=== PATIENT | female | born 1980 | race Caucasian/White ===

== ENCOUNTER 2019-10-30 02:07 | Emergency (ER) | payer SELFPAY ==
[2019-10-30 02:49] VITALS: BP 163/107; PULSE 78; RESP 16; TEMP 36.6; O2SAT 96; BMI 37.8
--- NOTE | 2019-10-30 04:24 | CTR_ITS ---
PROCEDURE INFORMATION: Exam: CT Head Without Contrast Exam date and time: 10/30/2019 4:55 AM Age: 39 years old Clinical indication: Dizziness and other: HTN TECHNIQUE: Imaging protocol: Computed tomography of the head without contrast. Radiation optimization: All CT scans at this facility use at least one of these dose optimization techniques: automated exposure control; mA and/or kV adjustment per patient size (includes targeted exams where dose is matched to clinical indication); or iterative reconstruction. COMPARISON: No relevant prior studies available. RADIATION DOSE METRICS: Total DLP (mGy-cm): 857.67 FINDINGS: Brain: The brain is unremarkable. There is no mass effect or significant white matter disease. There is no acute intracranial hemorrhage. Ventricles: There is no significant ventricular dilation. The basal cisterns are unremarkable. Bones/joints: The calvarium is intact. Sinuses: The paranasal sinuses are clear. Mastoid air cells: The mastoid air cells are clear. Soft tissues: The visible extracranial soft tissues are unremarkable. CT/CT head wo con* [id number] IMPRESSION: No acute findings. Radiation Dose CTDIVOL = (mGy): DLP = 857.67 (mGy-cm)
--- NOTE | 2019-10-30 04:37 | ED_ITS ---
Documented by User: Kellie Brar 10/30/19 05:58 HPI - General Adult General: Chief complaint: General Medical Stated complaint: high bp Time Seen by Provider: 10/30/19 04:04 Source: patient Mode of arrival: ambulatory Limitations: no limitations History of Present Illness: HPI narrative: Marley is a 39-year-old female who comes in complaining of dizziness and high blood pressure. Patient states that she was having sex with her when they had finished and she got up to go to the bathroom and had room spinning dizziness. She was able to get to the bathroom and the dizziness resolved. She had gone to the bathroom and got up off the toilet and had another episode of room spinning dizziness. She had to lay back down until the symptoms resolved and she decided to come here to the hospital to be checked out for stroke. She not had any symptoms since the second episode of dizziness. She denies any difficulty with speech, confusion, headache, or unilateral weakness or numbness. Patient denies ever having symptoms like this before. She states when the symptoms were present any type of movement of her body or head made them much worse. Associated symptoms: Deny chest pain, confusion, diaphoresis, dyspnea, headache(s), malaise, nausea, rash, palpitations, syncope or vomiting Review of Systems Const: Denies: fever(s), chills, body aches, fatigue, malaise or diaphoresis Eyes: Denies: change in vision, blurry vision, photophobia, eye discomfort, eye discharge or eye redness ENMT: Denies: throat pain, odynophagia, hoarseness, swelling of lips/tongue, ear or mastoid pain, ear discharge, change in hearing or nasal discharge Card: Denies: chest pain, palpitations, irregular heart rhythm, edema, lightheadedness, syncope, pre-syncope, dyspnea on exertion or orthopnea Resp: Denies: dyspnea, productive cough, non-productive cough, wheezing, hemoptysis or chest congestion GI: Denies: abdominal pain, nausea, vomiting, hematemesis, coffee ground emesis, heartburn, diarrhea, constipation, GI cramping, hematochezia or melena : Denies: flank pain, dysuria, urinary frequency, urinary urgency or hematuria Musc: Denies: neck pain, back pain, extremity pain, extremity swelling, joint pain, joint swelling, joint redness, joint warmth or joint stiffness Skin/Breast: Denies: rash, pruritus, erythema or skin tenderness Neuro: Reports: dizziness and vertigo; Denies: headache(s), numbness in extremities, weakness in extremities, sensory changes, lack of coordination, difficulty walking, confusion, Slurred speech present or seizure-like activity Umesh/Lymph: Denies: easy bruising, easy bleeding, petechiae, purpura or enlarged lymph nodes All/Imm: Denies: urticaria, throat swelling, tongue swelling, facial swelling or acute wheezing PFSH ED PFSH: Medical History Diabetes Heart murmur Female Reproductive History: Date of last menstrual period: 10/21/19 Physical Exam Const: COMMON NORMALS: no acute distress, patient oriented x3, no limitations, healthy appearing and well nourished GENERAL APPEARANCE: cooperative, well kempt and well developed HENMT: COMMON NORMALS: normocephalic, atraumatic, external ears normal, EAC's normal and Normal external nose present HEAD & SCALP: normal to inspection, normocephalic and atraumatic FACE & SINUS: normal facial exam and face symmetric NOSE: Normal external nose present and Normal nares present EXTERNAL EAR: Yes external ears normal EXTERNAL AUDITORY CANAL: EAC's normal MOUTH: Normal oral and palatal mucosa present, lip normal and tongue normal Eye: COMMON NORMALS: Equal, round and reactive pupils present and conjunctivae normal GENERAL EYE: appearance normal, both eyes and all related structures ALIGNMENT: Yes alignment normal PERIORBITAL: periorbital findings normal EYELID: eyelids normal CONJUNCTIVA: Yes conjunctivae normal SCLERA: sclerae normal PUPIL: Yes Equal, round and reactive pupils present Neck/C-Spine: COMMON NORMALS: full ROM, no lymphadenopathy, supple, no meningeal signs and no JVD GENERAL: Yes normal visual inspection and Yes trachea midline Chest: COMMONS NORMALS: normal inspection of the chest and normal palpation of entire chest wall Resp: COMMON NORMALS: normal respiratory effort, No retractions, No use of accessory muscles and clear to auscultation bilaterally EFFORT & INSPECTION: Yes able to speak in complete sentences and Yes symmetric chest movement AUSCULTATION: clear to auscultation bilaterally, no crackles, no rales, no rhonchi and no wheezes Cardio: COMMON NORMALS: no JVD, regular rate, regular rhythm, S1 normal heart sound present and S2 normal heart sound present RATE: regular rate RHYTHM: regular rhythm HEART SOUNDS: S1 normal heart sound present, S2 normal heart sound present, no click, no gallops, no murmurs, no rubs and abnormal split S2 GI: COMMON NORMALS: Soft to palpation and No hepatosplenomegaly present PALPATION: Yes Soft to palpation, No Tenderness to palpation present (GI), No Guarding due to palpation present (GI), No Rigid due to palpation, Yes No h epatosplenomegaly present, No Hernia present, No Palpable mass present and No Pulsatile mass present : COMMON NORMALS: Yes no CVA tenderness BLADDER/KIDNEY EXAM: Yes no CVA tenderness EXTERNAL FEMALE EXAM: No Hernia present Back/Pelvis: COMMON NORMALS: no CVA tenderness, thoracic and lumbar spine normal to inspection, no thoracic nor lumbar tenderness and thoraco-lumbar ROM normal Extremity: COMMON NORMALS: normal to inspection, full ROM, capillary refill normal, no joint enlargement, no clubbing, cyanosis or edema and no calf tenderness Neuro: COMMON NORMALS: patient oriented x3, CN's II-XII intact bilaterally, moves all extremities, no focal motor deficits and no sensory deficits noted MENINGEAL SIGNS: Yes no meningeal signs SPEECH: speech normal Psych: COMMON NORMALS: mental status grossly normal, Normal thought process present, cooperative, normal affect, speech normal and activity/motor behavior normal APPEARANCE: Yes well kempt SPEECH: Yes normal speech THOUGHT PROCESS: Normal thought process present Skin: COMMON NORMALS: no rashes or lesions noted, turgor normal, no jaundice, no petechiae and no mottling GENERAL SKIN EXAM: no rashes or lesions noted and turgor normal Course Vital Signs: Vital signs: Vital Signs Temperature 98.2 F 10/30/19 06:11 Pulse Rate 76 10/30/19 06:11 Respiratory Rate 20 H 10/30/19 06:11 Blood Pressure 155/99 10/30/19 06:11 Pulse Oximetry 95 10/30/19 06:11 MDM - General Adult MDM Narrative: Medical decision making narrative: Marley is a nice 39-year-old female who comes in with vertiginous type symptoms after intercourse. She never had a headache or chest pain or palpitations. She was not near syncopal she only had room spinning dizziness. Her 2 episodes resolved prior to arrival here. She was concerned about stroke so a CT was performed which is unremarkable. Her labs are unremarkable. Patient is feeling better would like to go home. I will go ahead and prescribe her Antivert in case her symptoms return at home that she can try this. Otherwise she is informed return to the ER. Lab Data: Labs: Lab Results 10/30/19 10/30/19 10/30/19 Range/Units 05:00 05:00 05:00 WBC 5.2 (4.0-10.0) 10^3/ uL RBC 4.29 (4.1-5.3) 10^6/u L Hgb 12.2 (11.5-15.3) g/dL Hct 37.8 (37.0-47.0) % MCV 88.1 (81-99) fL MCH 28.4 (28.0-34.0) pg MCHC 32.3 (30.0-36.0) g/dL RDW 12.0 L (12.1-15.1) % Plt Count 313 (130-400) 10^3/c mm MPV 10.6 H (7.4-10.4) fL Neut % (Auto) 53.5 % Lymph % (Auto) 35.5 % [place] % (Auto) 8.1 % Eos % (Auto) 2.1 % Baso % (Auto) 0.8 % Neut # (Auto) 2.77 (1.8-7.7) 10^3/u L Lymph # (Auto) 1.8 (0.8-4.8) 10^3/u L [place] # (Auto) 0.4 (0.2-0.9) 10^3/u L Eos # (Auto) 0.1 (0.0-0.8) 10^3/u L Baso # (Auto) 0.0 (0.0-0.1) 10^3/u L Nucleated RBC % (a uto) 0 % Nucleated RBCs # 0.0 /100WBC Sodium 137 (136-145) mmol/L Potassium 3.7 (3.5-5.1) mmol/L Chloride 100 (98-107) mmol/L Carbon Dioxide 26 (22-29) mmol/L Anion Gap 14.7 (5-19) BUN 11 (6-20) mg/dL Creatinine 1.0 H (0.5-0.9) mg/dL GFR Calculation 61.7 L (90-130) mL/min Glucose 120 H (65-115) mg/dL Calculated Osmolal ity 281 L (285-295) mOsm/k g Calcium 9.9 (8.5-10.5) mg/dL Total Bilirubin 0.3 (0.15-1.2) mg/dL AST 25 (0-32) U/L ALT 26 (0-33) U/L Alkaline Phosphata se 89 (35-105) IU/L Total Protein 7.8 (6.6-8.7) g/dL Albumin 4.3 (3.5-5.2) g/dL Globulin 3.5 (1.3-4.6) g/dL HCG, Qual Negative (Negative) Imaging Data^: CT Head: Radiologist's impression: [place] [address] CT Scan Report Signed Patient: Marley Zamarripa Unit #: [id number] : 1980 Age/Sex: 39 / F ADM Date: 10/30/19 Loc: ER Room/Bed: Attending Dr: Ordering Provider/Ordering MD: Kellie Brar DO Date of Service: 10/30/19 Procedure(s): CT head wo con* [id number] Accession Number(s): [id number] Report Number: [id number] PROCEDURE INFORMATION: Exam: CT Head Without Contrast Exam date and time: 10/30/2019 4:55 AM Age: 39 years old Clinical indication: Dizziness and other: HTN TECHNIQUE: Imaging protocol: Computed tomography of the head without contrast. Radiation optimization: All CT scans at this facility use at least one of these dose optimization techniques: automated exposure control; mA and/or kV adjustment per patient size (includes targeted exams where dose is matched to clinical indication); or iterative reconstruction. COMPARISON: No relevant prior studies available. RADIATION DOSE METRICS: Total DLP (mGy-cm): 857.67 FINDINGS: Brain: The brain is unremarkable. There is no mass effect or significant white matter disease. There is no acute intracranial hemorrhage. Ventricles: There is no significant ventricular dilation. The basal cisterns are unremarkable. Bones/joints: The calvarium is intact. Sinuses: The paranasal sinuses are clear. Mastoid air cells: The mastoid air cells are clear. Soft tissues: The visible extracranial soft tissues are unremarkable. CT/CT head wo con* [id number] IMPRESSION: No acute findings. Radiation Dose CTDIVOL = (mGy): DLP = 857.67 (mGy-cm) Dictated By: Nabil Greenwood MD Signed By: Nabil Greenwood MD Signed Date/Time: 10/30/19525 DD/ 4 Discharge Plan Discharge Patient Disposition: Home Clinical Impression: Benign paroxysmal positional vertigo Qualifiers: Laterality: unspecified laterality Qualified Code(s): H81.10 - Benign paroxysmal vertigo, unspecified ear Condition: Stable Prescriptions: New meclizine 25 mg tablet 25 mg PO QID PRN (Reason: dizziness) Qty: 30 RF: 0 Discharge Orders: Discharge Order (Routine); Ordered 10/30/19 Ordered By: Kellie Brar Referrals: Alberto Strickland MD [Physician] - 4-7 days Discharge Diet: Advance as tolerated Discharge Activity: Resume usual activity Patient Instructions: Benign Paroxysmal Positional Vertigo (ED) Activity Restrictions/Additional Instructions: Please return to the ER immediately for any of the signs or symptoms listed on your discharge instruction sheets, worsening/changing of your symptoms, you are not getting better as quickly as expected, or for ANY other cause or concerns. If your dizziness returns take the vertigo as I have prescribed. If your symptoms do not resolve return to the ER for further evaluation and care. Discharge Date/Time: 10/30/19 06:13 Coding Level of Care Code ED Wet Suit Gluer for Chg Fwd Exam Comprehensive Documented by User: Arthur Jameson DO 11/01/19 15:04 HPI - General Adult General: Chief complaint: General Medical Stated complaint: high bp Time Seen by Provider: 10/30/19 04:04 [facility] ED PFSH: Medical History Diabetes Heart murmur Course Vital Signs: Vital signs: Vital Signs Temperature 98.2 F 10/30/19 06:11 Pulse Rate 76 10/30/19 06:11 Respiratory Rate 20 H 10/30/19 06:11 Blood Pressure 155/99 10/30/19 06:11 Pulse Oximetry 95 10/30/19 06:11 MDM - General Adult MDM Narrative: Medical decision making narrative: Care turned over to Dr. Anaya at change of shift see his notes for final diagnosis and disposition Lab Data: Labs: Lab Results 10/30/19 10/30/19 10/30/19 Range/Units 05:00 05:00 05:00 WBC 5.2 (4.0-10.0) 10^3/ uL RBC 4.29 (4.1-5.3) 10^6/u L Hgb 12.2 (11.5-15.3) g/dL Hct 37.8 (37.0-47.0) % MCV 88.1 (81-99) fL MCH 28.4 (28.0-34.0) pg MCHC 32.3 (30.0-36.0) g/dL RDW 12.0 L (12.1-15.1) % Plt Count 313 (130-400) 10^3/c mm MPV 10.6 H (7.4-10.4) fL Neut % (Auto) 53.5 % Lymph % (Auto) 35.5 % [place] % (Auto) 8.1 % Eos % (Auto) 2.1 % Baso % (Auto) 0.8 % Neut # (Auto) 2.77 (1.8-7.7) 10^3/u L Lymph # (Auto) 1.8 (0.8-4.8) 10^3/u L [place] # (Auto) 0.4 (0.2-0.9) 10^3/u L Eos # (Auto) 0.1 (0.0-0.8) 10^3/u L Baso # (Auto) 0.0 (0.0-0.1) 10^3/u L Nucleated RBC % (a uto) 0 % Nucleated RBCs # 0.0 /100WBC Sodium 137 (136-145) mmol/L Potassium 3.7 (3.5-5.1) mmol/L Chloride 100 (98-107) mmol/L Carbon Dioxide 26 (22-29) mmol/L Anion Gap 14.7 (5-19) BUN 11 (6-20) mg/dL Creatinine 1.0 H (0.5-0.9) mg/dL GFR Calculation 61.7 L (90-130) mL/min Glucose 120 H (65-115) mg/dL Calculated Osmolal ity 281 L (285-295) mOsm/k g Calcium 9.9 (8.5-10.5) mg/dL Total Bilirubin 0.3 (0.15-1.2) mg/dL AST 25 (0-32) U/L ALT 26 (0-33) U/L Alkaline Phosphata se 89 (35-105) IU/L Total Protein 7.8 (6.6-8.7) g/dL Albumin 4.3 (3.5-5.2) g/dL Globulin 3.5 (1.3-4.6) g/dL HCG, Qual Negative (Negative) Discharge Plan Discharge Patient Disposition: Home Clinical Impression: Benign paroxysmal positional vertigo Qualifiers: Laterality: unspecified laterality Qualified Code(s): H81.10 - Benign p aroxysmal vertigo, unspecified ear Condition: Stable Prescriptions: New meclizine 25 mg tablet 25 mg PO QID PRN (Reason: dizziness) Qty: 30 RF: 0 Discharge Orders: Discharge Order (Routine); Ordered 10/30/19 Ordered By: Kellie Brar Referrals: Alberto Strickland MD [Physician] - 4-7 days Discharge Diet: Advance as tolerated Discharge Activity: Resume usual activity Patient Instructions: Benign Paroxysmal Positional Vertigo (ED) Activity Restrictions/Additional Instructions: Please return to the ER immediately for any of the signs or symptoms listed on your discharge instruction sheets, worsening/changing of your symptoms, you are not getting better as quickly as expected, or for ANY other cause or concerns. If your dizziness returns take the vertigo as I have prescribed. If your symptoms do not resolve return to the ER for further evaluation and care. Discharge Date/Time: 10/30/19 06:13 Coding Level of Care Code ED Wet Suit Gluer for Chg Fwd Exam Comprehensive
[2019-10-30 05:32] LABS: Basophils % 0.8 %; Eosinophils # 0.1 10^3/uL (0.0-0.8); Eosinophils % 2.1 %; Hematocrit 37.8 % (37.0-47.0); Hemoglobin 12.2 g/dL (11.5-15.3); Lymphocytes # 1.8 10^3/uL (0.8-4.8); Lymphocytes % 35.5 %; Mean Corpuscular HGB Conc 32.3 g/dL (30.0-36.0); Mean Corpuscular Hemoglobin 28.4 pg (28.0-34.0); Mean Corpuscular Volume 88.1 fL (81-99); Mean Platelet Volume 10.6 fL (7.4-10.4); Monocytes # 0.4 10^3/uL (0.2-0.9); Monocytes % 8.1 %; Neutrophils # 2.77 10^3/uL (1.8-7.7); Neutrophils % 53.5 %; Nucleated Red Blood Cells % 0 %; Platelet Count 313 10^3/cmm (130-400); Red Blood Count 4.29 10^6/uL (4.1-5.3); White Blood Count 5.2 10^3/uL (4.0-10.0)
[2019-10-30 05:43] LABS: HCG, Serum Qual Negative (Negative)
[2019-10-30 05:52] LABS: Alanine Aminotransferase 26 U/L (0-33); Albumin Level 4.3 g/dL (3.5-5.2); Alkaline Phosphatase 89 IU/L (35-105); Anion Gap 14.7 (5-19); Aspartate Amino Transferase 25 U/L (0-32); Blood Urea Nitrogen 11 mg/dL (6-20); Calcium 9.9 mg/dL (8.5-10.5); Carbon Dioxide 26 mmol/L (22-29); Chloride 100 mmol/L (98-107); Globulin 3.5 g/dL (1.3-4.6); Glomerular Filtration Rate 61.7 mL/min (90-130); Glucose 120 mg/dL (65-115); Osmolality Calculated 281 mOsm/kg (285-295); Potassium 3.7 mmol/L (3.5-5.1); Sodium 137 mmol/L (136-145); Total Bilirubin 0.3 mg/dL (0.15-1.2); Total Protein 7.8 g/dL (6.6-8.7)
[2019-10-30 06:11] VITALS: BP 155/99; PULSE 76; RESP 20; TEMP 36.8; O2SAT 95
== END 2019-10-30 06:13 | disposition home or self-care (01) ==
PROVIDERS: Emergency Provider Emergency Medicine
DX: H81.10 Benign paroxysmal vertigo, unspecified ear (principal); E11.9 Type 2 diabetes mellitus without complications
CPT/HCPCS: 12345; 70450; 80053; 84703; 85025; 99282; 99283

== ENCOUNTER → 2021-10-09 16:42 | Outpatient (BNVA) | payer MEDICAID, SELFPAY | PROVIDERS: Visit Provider Registered Nurse Neonatal Intensive Care | DX: N39.0 Urinary tract infection, site not specified (principal) | CPT/HCPCS: 81000 ==

== ENCOUNTER → 2022-12-24 15:52 | Outpatient (BNVA) | payer OTHER, SELFPAY | PROVIDERS: Visit Provider Obstetrics & Gynecology | DX: N93.9 Abnormal uterine and vaginal bleeding, unspecified (principal) | CPT/HCPCS: 80053; 84443; 85025 ==

== ENCOUNTER → 2022-12-31 12:19 | Outpatient (BNVA) | payer OTHER, SELFPAY | PROVIDERS: Visit Provider Obstetrics & Gynecology | DX: N93.9 Abnormal uterine and vaginal bleeding, unspecified (principal); N83.201 Unspecified ovarian cyst, right side | CPT/HCPCS: 76830 ==

== ENCOUNTER 2023-02-20 05:50 | Day surgery (SDC) | payer OTHER, SELFPAY ==
[2023-02-20] VITALS (10 sets, daily range): BP systolic 112–168; BP diastolic 71–110; PULSE 66–81; RESP 12–18; TEMP 36.1; O2SAT 91–97; BMI 46.0
--- NOTE | 2023-02-20 02:06 | P.HP_ITS ---
Same Day Surgery H&P Indication for Procedure/HPI DATE OF PROCEDURE: February 20, 2023 CHIEF COMPLAINT/INDICATIONFOR SURGICAL PROCEDURE: abnormal uterine bleeding PREOP DIAGNOSIS: abnormal uterine bleeding PLANNED PROCEDURE: Operation Date: 02/20/23 07:00 Proposed Procedures p Hysteroscopy, endometrial sampling, possible endometrial polypectomy 63809 ,n93.9(Not Applicable) - Diego Oleary MD s possible endometrial polypectomy(Not Applicable) - Diego Oleary MD 42 y.o. h/o BTL Periods prior to four months ago were normal and regular Over the past 4 months, periods have been prolonged and very heavy With passing large clots Now scheduled for hysteroscopy, endometrial sampling, possible endometrial polypectomy Medications/Allergies* Home Medications Medication Instructions Recorded Confirmed Type cetirizine 10 mg tablet 10 mg PO BEDTIME 02/19/23 02/19/23 History ferrous sulfate 142 mg (45 mg 142 mg PO BEDTIME 02/19/23 02/19/23 History iron) tablet,extended release Allergies/Adverse Reactions Allergy/AdvReac Type Severity Reaction Status Date / Time aspirin Allergy ALGY-Hives Verified 02/19/23 13:11 Pertinent History/Comorbid Conditions* Medical History (Updated 01/04/23 @ 22:46 by Diego Oleary MD) Diabetes Heart murmur Family History (Updated 12/24/22 @ 14:05 by Stan Salvador) Diabetes Father Mother Hypertension Father Mother Thyroid disease Father Denies family history of Colon cancer Ovarian cancer Heart disease Hyperlipidemia Breast cancer Uterine cancer Stroke Pertinent Exam Findings alert, oriented x 3, clear to auscultation bilaterally and regular rate & rhythm Pertinent Data Hgb 12-24-22 12.2 CMP normal TSH normal Pelvic sono 12-31-22 uterus 11.5 x 6.5 x 6 cm Endometrium 1.6 cm Normal right ovary Left ovary not seen Recommendations Surgery/Procedure today Coding Level of Care Code Acute Code for Chg Fwd Time Spent (min) 20
[2023-02-20] MEDS: sodium chloride 0.9% 1,000 ML 30 ML IV (06:13)
[2023-02-20 06:22] LABS: OR HCG Qualitative Urine Negative (Negative)
--- NOTE | 2023-02-20 06:44 | W.PM.OPSUD ---
Surgery/Procedure H&P Update DATE OF PROCEDURE: February 20, 2023 DATE H&P PERFORMED: 02/20/23 H&P UPDATE INFORMATION: I have reviewed H&P completed within last 30 days, I have examined patient prior to procedure and No changes to prior documentation PREOP DIAGNOSIS: abnormal uterine bleeding PRIMARY INDICATION FOR PROCEDURE: abnormal uterine bleeding PLANNED PROCEDURE: Operation Date: 02/20/23 07:00 Proposed Procedures p Hysteroscopy, endometrial sampling, possible endometrial polypectomy 54004,n93.9(Not Applicable) - Diego Oleary MD s possible endometrial polypectomy(Not Applicable) - Diego Oleary MD
--- NOTE | 2023-02-20 08:25 | ANES.PREANE2 ---
Pre-Anesthetic Assessment Height/Weight: Height 1.68 m Weight 129.274 kg Temp Pulse Resp BP Pulse Ox O2 Del Method O2 Flow Rate 97 F L 74 16 136/86 97 Nasal Cannula 2 02/20/23 07:54 02/20/23 08:19 02/20/23 08:19 02/20/23 08:19 02/20/23 08:19 02/20/23 08:19 02/20/23 08:19 Preop Diagnosis: abnormal uterine bleeding Operation Date: 02/20/23 07:00 Proposed Procedures p Hysteroscopy, endometrial sampling, possible endometrial polypectomy 76325,n93.9(Not Applicable) - Diego Oleary MD s possible endometrial polypectomy(Not Applicable) - Diego Oleary MD Familial anesthetic complications: none Was Beta Cori taken within 24 hours: N/A Was Clonidine taken within 24 hours: N/A Last intake: Intake Last Liquid Date 02/19/23 Last Liquid Time 23:00 Last Solid Date 02/19/23 Last Solid Time 21:30 Social No alcohol and No tobacco Exam alert, oriented x 3, clear to auscultation bilaterally and regular rate & rhythm Airway Submandibular: within normal limits Cervical ROM: within normal limits Mallampati: Class II Dentition: chipped Comments: Comments: Very poor dentition, multiple chipped and missing CV/HEM Anemia Metabolic Diabetes Mellitus and Morbid Obesity Anesthetic Plan ASA status: 3 Anesthesia: General Medications/Allergies Home Medications Medication Instructions Recorded Confirmed Last Taken Type fluticasone propionate 50 2 spray intranasal DAILY #16 grams 01/08/23 02/19/23 02/19/23 Rx mcg/actuation nasal spray,suspension (Flonase Allergy Relief) cetirizine 10 mg tablet 10 mg PO BEDTIME 02/19/23 02/19/23 02/19/23 History ferrous sulfate 142 mg (45 mg 142 mg PO BEDTIME 02/19/23 02/19/23 02/19/23 History iron) tablet,extended release Allergies Allergy/AdvReac Type Severity Reaction Status Date / Time aspirin Allergy ALGY-Hives Verified 02/19/23 13:11 Current Medications Generic Name Dose Route Start Last Admin Trade Name Freq PRN Reason Stop Dose Admin Sodium Chloride 1,000 mls @ 30 mls/hr 02/20/23 06:00 02/20/23 06:13 Sodium Chloride 0.9% IV 02/21/23 05:59 30 mls/hr .Q24H HORACIO Administration PFSH Anesthesia Medical History Diabetes Heart murmur Family History (Updated 12/24/22 @ 14:05 by Stan Salvador) Father Hypertension Thyroid disease Diabetes Mother Hypertension Diabetes Denies family history of Colon cancer Ovarian cancer Heart disease Hyperlipidemia Breast cancer Uterine cancer Stroke Female Reproductive History Date of last menstrual period: 02/17/23 Data Anesthesia Cardiac Studies: No Data to Display
--- NOTE | 2023-02-20 14:14 | PM.OP ---
Operative Report Date of procedure: February 20, 2023 Pre-op diagnosis: abnormal uterine bleeding Post-op diagnosis: same Post-op findings: normal endometrial cavity No polyps / fibroids moderate endometrial tissue Procedure done: hysteroscopy Curettage of uterus Implants: none Specimens removed/disposition: endometrial curettings Surgeon: Diego Oleary MD Anesthesia: MAC Estimated blood loss (mL): 5 Complications: none Condition: stable Disposition: PACU Brief History: 44 y.o. with 4-month history of abnormal uterine bleeding Procedure: Informed consent signed. Patient was taken to the operating room. Anesthesia was induced. Patient was placed in dorsolithotomy position, prepped and draped for hysteroscopy. A bivalve speculum was placed in the vagina. The anterior lip of the cervix was grasped with a sharp-toothed tenaculum. The cervix was serially dilated with Hegar dilators. . A hysteroscope was placed into the endometrial cavity. The endometrial cavity was seen to be normal. There were no polyps or fibroids. There was a moderate amount of endometrial tissue. The hysteroscope was then removed. Endometrial curettage was done with a sharp curette. Endometrial tissue was sent to pathology. The sharp-toothed tenaculum was removed. There was no bleeding from the endometrial cavity or cervix. The patient was then placed supine and awakened and taken to the PACU. Postop condition: stable EBL: none Sponge and instruments counts were normal x 2 Complications: none
--- NOTE | 2023-02-20 15:54 | ANE.PACU2 ---
Inpatient post-anesthesia follow up: Airway intact: Yes Vital signs: Temperature 97 F Pulse Rate 72 Respiratory Rate 18 Blood Pressure 168/95 Pulse Oximetry 95 Oxygen Delivery Me thod Room Air Oxygen Flow Rate 2 Fraction of Inspir ed Oxygen Hydration adequate: Yes Nausea and vomiting: No Pain level: 2 Mental status: Baseline
== END 2023-02-20 09:13 | disposition home or self-care (01) ==
PROVIDERS: Anesthesiology; Visit Provider Obstetrics & Gynecology
PROC: 0UJD8ZZ Inspection of Uterus and Cervix, Via Natural or Artificial Opening Endoscopic (ICD-10-PCS; CPT 58555; principal; 2023-02-20 07:00)
DX: N93.9 Abnormal uterine and vaginal bleeding, unspecified (principal); E11.9 Type 2 diabetes mellitus without complications; E66.01 Morbid (severe) obesity due to excess calories; Z68.42 Body mass index [BMI] 45.0-49.9, adult
CPT/HCPCS: 58558; 81025; 84703; 88305; J1100; J2250; J2405; J2704; J3010; J7030

== ENCOUNTER 2023-11-22 14:18 | Emergency (ER) | payer SELFPAY ==
[2023-11-22 14:22] VITALS: BP 172/112; PULSE 82; RESP 17; TEMP 36.6; O2SAT 96; BMI 45.5
--- NOTE | 2023-11-22 14:32 | XRR_ITS ---
PROCEDURE INFORMATION: Exam: XR Left Knee Exam date and time: 11/22/2023 2:39 PM Age: 43 years old Clinical indication: Left; Patient HX: Lt knee pain/swelling x 1 wk; No known injury TECHNIQUE: Imaging protocol: Radiologic exam of the left knee. Views: 3 views. COMPARISON: CR XR knee LT 3V* [id number] 01/19/2020 9:04 AM FINDINGS: Bones/joints: Mild-moderate medial femorotibial osteoarthritis. No evidence of acute fracture or subluxation. Small joint effusion. Soft tissues: No gross soft tissue abnormality. XR/XR knee LT 3V* [id number] IMPRESSION: 1. No evidence of acute fracture or subluxation.
--- NOTE | 2023-11-22 14:32 | W.ED.EXTPRO ---
HPI - Extremity Problem General: Chief complaint: Extremity Problem,Nontraumatic Stated complaint: Left knee swelling and pain Time Seen by Provider: 11/22/23 14:22 Source: patient Mode of arrival: ambulatory Limitations: no limitations History of Present Illness: Patient is a 43-year-old female presenting to the emergency department with left knee pain and swelling that she states have been present for the past week. States it has been starting to buckle under her, no trauma or injury to her knowledge. She has been taking Tylenol but denies any relief. Also has been using ice and heat. No surgical history to the knee or history of fractures or dislocations. States it is worsened with weightbearing and range of motion. MD Complaint: joint swelling and joint pain Onset (ago): week(s) Pain Consistency: constant Location: left and knee Radiation: none Exacerbating factors: range of motion and weight bearing Associated symptoms: Deny chest pain, fever(s) or rash Related Data Home Medications Medication Instructions Recorded Confirmed ferrous sulfate 142 mg (45 mg 142 mg PO BEDTIME 02/19/23 09/15/23 iron) tablet,extended release Previous Rx's Medication Instructions Recorded fluticasone propionate 50 2 spray intranasal DAILY #16 grams 01/08/23 mcg/actuation nasal spray,suspension (Flonase Allergy Relief) cetirizine 10 mg tablet 10 mg PO BEDTIME #30 tabs 06/25/23 Allergies Allergy/AdvReac Type Severity Reaction Status Date / Time aspirin Allergy ALGY-Hives Verified 11/22/23 14:25 Review of Systems General: Reports: 10 or more systems reviewed and unremarkable except in HPI and below Const: Denies: fever(s) or chills Card: Denies: chest pain Resp: Denies: dyspnea or productive cough GI: Denies: abdominal pain, nausea, vomiting or diarrhea : Denies: flank pain Musc: Reports: joint pain and joint swelling; Denies: neck pain, back pain, extremity pain, extremity swelling, joint redness, joint warmth, limited range of motion or muscle weakness Skin/Breast: Denies: rash Neuro: Denies: headache(s), numbness in extremities or weakness in extremities PFS ED PFSH: Medical History Diabetes Heart murmur Family History Father Hypertension Thyroid disease Diabetes Mother Hypertension Diabetes Denies family history of Colon cancer Ovarian cancer Heart disease Hyperlipidemia Breast cancer Uterine cancer Stroke Physical Exam Const: COMMON NORMALS: no acute distress, patient oriented x3, no limitations, alert and well nourished NUTRITIONAL APPEARANCE: obese morbidly obese HENMT: COMMON NORMALS: normocephalic and atraumatic HEAD & SCALP: normocephalic and atraumatic Neck/C-Spine: COMMON NORMALS: full ROM, supple and no meningeal signs Resp: COMMON NORMALS: normal respiratory effort, No use of accessory muscles and clear to auscultation bilaterally AUSCULTATION: clear to auscultation bilaterally Cardio: COMMON NORMALS: regular rate and regular rhythm RATE: regular rate RHYTHM: regular rhythm Extremity: COMMON NORMALS: normal to inspection, full ROM, capillary refill normal, no joint enlargement and no clubbing, cyanosis or edema NARRATIVE EXTREMITY EXAM: No obvious swelling of the left knee. Mild diffuse tenderness to palpation. No appreciable joint effusion. No joint laxity with varus/valgus stress testing. Negative Lolly, anterior drawer, and posterior drawer. Distal neurovascular status intact. Distal pulses present. Neuro: COMMON NORMALS: patient oriented x3, moves all extremities, no focal motor deficits and no sensory deficits noted SENSORIUM/ORIENTATION: Yes alert MENINGEAL SIGNS: Yes no meningeal signs Skin: COMMON NORMALS: no rashes or lesions noted GENERAL SKIN EXAM: no rashes or lesions noted Course Vital Signs: Vital signs: Vital Signs Temperature 98 F 11/22/23 14:22 Pulse Rate 82 11/22/23 14:22 Respiratory Rate 17 11/22/23 14:22 Blood Pressure 172/112 11/22/23 14:22 Pulse Oximetry 96 11/22/23 14:22 Oxygen Delivery Me thod Room Air 11/22/23 14:22 MDM - Extremity (Nontraumatic) Medical Decision Making Patient presented with 1 week of atraumatic left knee pain, has started to have some swelling as well. Physical examination essentially unremarkable. X-ray did not demonstrate any acute findings. Difficult to determine what type of injury without known mechanism, but we will treat as if it is a strain/sprain and referred to orthopedics so that she can obtain further imaging if pain persists. Will do RICE therapy in the meantime and she will add ibuprofen to her Tylenol for pain. Return precautions given. Lab Data Radiology Impressions Knee X-Ray 11/22/23 14:32 IMPRESSION: 1. No evidence of acute fracture or subluxation. All radiology interpretation(s) finalized by discharge Discharge Plan Discharge Patient Disposition: Home Clinical Impression: Left knee sprain Qualifiers: Encounter type: initial encounter Involved ligament of knee: unspecified ligament Qualified Code(s): S83.92XA - Sprain of unspecified site of left knee, initial encounter Condition: Stable Prescriptions: No Action cetirizine 10 mg tablet 10 mg PO BEDTIME Qty: 30 0RF fluticasone propionate [Flonase Allergy Relief] 50 mcg/actuation spray,suspension 2 spray intranasal DAILY Qty: 16 0RF Rx Instructions: administer into each nostril ferrous sulfate 142 mg (45 mg iron) tablet extended release 142 mg PO BEDTIME Discharge Orders: Discharge ED (Routine); Ordered 11/22/23 Ordered By: Spenser Pitt Discharge Diet: Usual diet Discharge Activity: Increase activity as tolerated Patient Instructions: Knee Sprain (ED) Activity Restrictions/Additional Instructions: Rest, ice, elevation, and compression of the left knee. Alternate Tylenol and ibuprofen as discussed. Gentle range of motion exercises as tolerated and weightbearing as tolerated. Follow-up with orthopedics for further evaluation. Return with any new or worsening. Coding Level of Care Code ED Transcribing Machine Operator for Beau Michelle
[2023-11-22] MEDS: ketorolac 60 mg/2 mL INJ IM (15:31)
[2023-11-22 15:35] VITALS: BP 187/110; PULSE 76; RESP 16; O2SAT 96
== END 2023-11-22 15:33 | disposition home or self-care (01) ==
PROVIDERS: Emergency Provider Physician Assistant
DX: S83.92XA Sprain of unspecified site of left knee, initial encounter (principal); E11.9 Type 2 diabetes mellitus without complications; X50.9XXA Other and unspecified overexertion or strenuous movements or postures, initial encounter
CPT/HCPCS: 73562; 96372; 99284; J1885

== ENCOUNTER 2024-03-25 17:59 | Emergency (ER) | payer SELFPAY ==
--- NOTE | 2024-03-25 18:01 | ECG_ITS ---
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 Measurements Intervals [place] Rate: 101 P: 37 MI: 150 QRS: -19 QRSD: 94 T: 66 QT: 355 QTc: 462 Interpretive Statements SINUS TACHYCARDIA LOW QRS VOLTAGE IN PRECORDIAL LEADS [QRS DEFLECTION < 1.0 mV IN CHEST LEADS] POSSIBLE ANTERIOR MYOCARDIAL INFARCTION , PROBABLY OLD [30 ms Q WAVE IN V3/V4, OR R < 0.2 mV IN V4] ABNORMAL RHYTHM ECG Compared to ECG 07/14/2017 22:09:07 Low QRS voltage now present Myocardial infarct finding now present Sinus rhythm no longer present Electronically Signed On 03-25-2024 18:18:53 CLINICAL EDUCATION CONSULTANT by Tena Torres M.D. [id number]
--- NOTE | 2024-03-25 18:02 | XRR_ITS ---
PROCEDURE INFORMATION: Exam: XR Chest Exam date and time: 03/25/2024 6:24 PM Age: 44 years old Clinical indication: Pain; Chest pressure; Additional info: Cp TECHNIQUE: Imaging protocol: Radiologic exam of the chest. Views: 1 view. COMPARISON: CR XR chest 1V [id number] 07/14/2017 9:32 PM FINDINGS: Lungs: Unremarkable. No consolidation. Pleural spaces: Unremarkable. No pleural effusion. No pneumothorax. Heart/Mediastinum: Unremarkable. No cardiomegaly. Bones/joints: Unremarkable. XR/XR chest 1V portable [id number] IMPRESSION: No acute findings.
[2024-03-25 18:05] VITALS: BP 184/114; PULSE 99; RESP 17; TEMP 36.9; O2SAT 96; BMI 46.0
[2024-03-25 18:21] VITALS: BP 165/109; PULSE 92; RESP 18; O2SAT 96
[2024-03-25 18:42] LABS: Basophils % 0.6 %; Eosinophils # 0.1 10^3/uL (0.0-0.8); Eosinophils % 1.7 %; Hematocrit 34.4 % (36-47); Lymphocytes # 0.8 10^3/uL (0.8-4.8); Lymphocytes % 23.2 %; Mean Corpuscular HGB Conc 32.6 g/dL (30-55); Mean Corpuscular Hemoglobin 28.1 pg (27-33); Mean Corpuscular Volume 86.2 fl (85-98); Mean Platelet Volume 9.8 fL (7.4-10.4); Monocytes # 0.4 10^3/uL (0.2-0.9); Monocytes % 10.6 %; Neutrophils # 2.28 10^3/uL (1.8-7.7); Neutrophils % 63.9 %; Nucleated Red Blood Cells % 0 %; Platelet Count 314 10^3/cmm (157-399); Red Blood Count 3.99 10^6/uL (3.85-5.65); Red Cell Distribution Width 12.3 % (12.1-15.1); White Blood Count 3.57 10^3/uL (3.29-11.43)
--- NOTE | 2024-03-25 18:49 | W.ED.URI ---
HPI - URI/Sore Throat General: Chief Complaint: Upper Respiratory Infection Stated Complaint: Chest Pressure temp hands numb Time Seen by Provider: 03/25/24 18:09 History of Present Illness: 44-year-old female presents emergency room with chest tightness some flu symptoms. She has been feeling bad for about 4 days. She has had a couple episodes where her chest felt tight. She has a history of hypertension and anxiety. Related Data Home Medications Medication Instructions Recorded Confirmed ferrous sulfate 142 mg (45 mg 142 mg PO BEDTIME 02/19/23 09/15/23 iron) tablet,extended release Previous Rx's Medication Instructions Recorded fluticasone propionate 50 2 spray intranasal DAILY #16 grams 01/08/23 mcg/actuation nasal spray,suspension (Flonase Allergy Relief) cetirizine 10 mg tablet 10 mg PO BEDTIME #30 tabs 06/25/23 Allergies Allergy/AdvReac Type Severity Reaction Status Date / Time aspirin Allergy ALGY-Hives Verified 11/22/23 14:25 Review of Systems Narrative: Constitutional symptoms: Negative except as documented in HPI. Skin symptoms: Negative except as documented in HPI. Eye symptoms: Negative except as documented in HPI. ENMT symptoms: Negative except as documented in HPI. Respiratory symptoms: Negative except as documented in HPI. Cardiovascular symptoms: Negative except as documented in HPI. Gastrointestinal symptoms: Negative except as documented in HPI. Genitourinary symptoms: Negative except as documented in HPI. Musculoskeletal symptoms: Negative except as documented in HPI. Neurologic symptoms: Negative except as documented in HPI. Psychiatric symptoms: Negative except as documented in HPI. Endocrine symptoms: Negative except as documented in HPI. PFS ED PFSH: Medical History Diabetes Heart murmur Family History Father Hypertension Thyroid disease Diabetes Mother Hypertension Diabetes Denies family history of Colon cancer Ovarian cancer Heart disease Hyperlipidemia Breast cancer Uterine cancer Stroke Physical Exam Narrative: EXAM NARRATIVE: General: Alert, no acute distress. Skin: Warm, dry. Head: Normocephalic, atraumatic. Neck: Supple, trachea midline. Eye: Extraocular movements are intact. Ears, nose, mouth and throat: mucosa moist. Cardiovascular: Regular, Normal peripheral perfusion. Respiratory: Lungs are clear to auscultation, respirations are non-labored, breath sounds are equal, Symmetrical chest wall expansion. Gastrointestinal: Soft, Nontender, Non distended Musculoskeletal: Normal ROM, no deformity. Neurological: Alert and oriented, No focal neurological deficit observed. Psychiatric: Cooperative, appropriate mood & affect. Course Vital Signs: Vital signs: Vital Signs Temperature 98.5 F 03/25/24 18:05 Pulse Rate 81 03/25/24 21:13 Respiratory Rate 18 03/25/24 18:21 Blood Pressure 150/90 03/25/24 21:13 Pulse Oximetry 96 03/25/24 21:13 Oxygen Delivery Me thod Room Air 03/25/24 21:12 MDM - URI/Sore Throat Medical Decision Making Differential diagnosis for patient with chest pain includes but is not limited to and based on the above HPI, review of systems and physical exam: Pneumonia. unstable angina. angina. Acute coronary syndrome / RI. Pulmonary embolism. Costochondritis / musculoskeletal. Pleurisy. Pericarditis. Esophageal spasm. Pancreatis. Cholecystitis. Orders placed to evaluate differential diagnosis based on the above differential, HPI and physical exam Chest x-ray: No acute process. No infiltrate. No pneumothorax. This was reviewed and interpreted by myself the emergency room physician. I also reviewed the radiology report. Lab Review: Laboratory results were reviewed and interpreted by myself the emergency room physician. Lab work is unremarkable including serial troponins. Patient declined flu swab. I reviewed the patient's medical record. Reexamination: Patient remained stable. No increased work of breathing. No altered mental status. No focal motor deficits. Assessment and plan: Flulike symptoms Noncardiac chest pain - Discharged home - Discussed plan with patient. Answered any questions. - Evaluation and treatment of this problem were appropriate in the emergency setting. Lab Data 03/25/24 18:32 03/25/24 18:32 Radiology Impressions Chest X-Ray 03/25/24 18:02 IMPRESSION: No acute findings. Laboratory Results WBC 3.57 10^3/uL (3.29-11.43) 03/25/24 18: RBC 3.99 10^6/uL (3.85-5.65) 03/25/24 18: Hgb 11.20 g/dL (11.27-16.99) L 03/25/24 18: Hct 34.4 % (36-47) L 03/25/24 18:32 MCV 86.2 fl (85-98) 03/25/24 18: MCH 28.1 pg (27-33) 03/25/24 18: MCHC 32.6 g/dL (30-55) 03/25/24 18:32 RDW 12.3 % (12.1-15.1) 03/25/24 18: Plt Count 314 10^3/cmm (157-399) 03/25/24 18: MPV 9.8 fL (7.4-10.4) 03/25/24 18: Neut % (Auto) 63.9 % 03/25/24 18: Lymph % (Auto) 23.2 % 03/25/24 18: [place] % (Auto) 10.6 % 03/25/24 18: Eos % (Auto) 1.7 % 03/25/24 18: Baso % (Auto) 0.6 % 03/25/24 18: Neut # (Auto) 2.28 10^3/uL (1.8-7.7) 03/25/24 18: Lymph # (Auto) 0.8 10^3/uL (0.8-4.8) 03/25/24 18: [place] # (Auto) 0.4 10^3/uL (0.2-0.9) 03/25/24 18: Eos # (Auto) 0.1 10^3/uL (0.0-0.8) 03/25/24 18: Baso # (Auto) 0.0 10^3/uL (0.0-0.1) 03/25/24 18: Nucleated RBC % (auto) 0 % 03/25/24 18: Nucleated RBCs # 0.0 /100WBC 03/25/24 18: Sodium 136 mmol/L (136-145) 03/25/24 18: Potassium 4.1 mmol/L (3.5-5.1) 03/25/24 18: Chloride 100 mmol/L (98-107) 03/25/24 18: Carbon Dioxide 25 mmol/L (22-29) 03/25/24 18: Anion Gap 15.1 (5-19) 03/25/24 18:32 BUN 8 mg/dL (6-20) 03/25/24 18:32 Creatinine 0.8 mg/dL (0.5-0.9) 03/25/24 18:32 GFR Calculation 77.9 mL/min (90-130) L 03/25/24 18:32 Glucose 99 mg/dL (65-115) 03/25/24 18:32 Calculated Osmolality 280 mOsm/kg (285-295) L 03/25/24 18:32 Calcium 9.2 mg/dL (8.5-10.5) 03/25/24 18:32 Total Bilirubin 0.3 mg/dL (0.15-1.2) 03/25/24 18:32 AST 28 U/L (0-32) 03/25/24 18:32 ALT 26 U/L (0-33) 03/25/24 18:32 Alkaline Phosphatase 116 U/L (35-105) H 03/25/24 18:32 Troponin T Baseline < 6 ng/L (0-10) 03/25/24 18:32 Troponin T 120 Minute 6.00 ng/L (0-10) 03/25/24 20:16 Delta Troponin T 0.62856 ABS# (0-10) 03/25/24 20:16 Total Protein 7.7 g/dL (6.6-8.7) 03/25/24 18:32 Albumin 4.3 g/dL (3.5-5.2) 03/25/24 18:32 Globulin 3.4 g/dL (1.3-4.6) 03/25/24 18:32 Lipase 51 U/L (13-60) 03/25/24 18:32 All radiology interpretation(s) finalized by discharge Discharge Plan Discharge Patient Disposition: Home Clinical Impression: Non-cardiac chest pain, Flu-like symptoms Condition: Stable Prescriptions: No Action cetirizine 10 mg tablet 10 mg PO BEDTIME Qty: 30 0RF fluticasone propionate [Flonase Allergy Relief] 50 mcg/actuation spray,suspension 2 spray intranasal DAILY Qty: 16 0RF Rx Instructions: administer into each nostril ferrous sulfate 142 mg (45 mg iron) tablet extended release 142 mg PO BEDTIME Discharge Orders: Discharge ED (Routine); Ordered 03/25/24 Ordered By: Leigh Haile Discharge Diet: Usual diet Discharge Activity: Increase activity as tolerated Patient Instructions: Noncardiac Chest Pain (ED), Opioid Safety, Pain Management Activity Restrictions/Additional Instructions: Thank you for choosing [facility] for your healthcare needs today. Please realize this is an emergency room and that we are providing you with a medical screening exam and this may not be complete and all inclusive of all the testing and or work up that you may need to determine your ailment or severity of your illness. You have been screened and evaluated and felt safe for discharge. Health conditions do change or evolve sometimes and as such it is important that you follow up with your Primary Doctor to be re checked, 3-5 days is a general good time frame for follow up. You are always welcome to return to the ED for re assessment if your symptoms are worsening or you have new concerns Coding Level of Care Code ED Supervisor Lending Activities for Beau Michelle
[2024-03-25 18:57] VITALS: BP 160/105; PULSE 83; O2SAT 97
[2024-03-25 19:09] LABS: Troponin(5th) Baseline < 6 ng/L (0-10)
[2024-03-25 19:15] LABS: Alanine Aminotransferase 26 U/L (0-33); Albumin Level 4.3 g/dL (3.5-5.2); Alkaline Phosphatase 116 U/L (35-105); Anion Gap 15.1 (5-19); Aspartate Amino Transferase 28 U/L (0-32); Blood Urea Nitrogen 8 mg/dL (6-20); Calcium 9.2 mg/dL (8.5-10.5); Carbon Dioxide 25 mmol/L (22-29); Chloride 100 mmol/L (98-107); Creatinine Clr Calc Pharmacy 123.6603; Globulin 3.4 g/dL (1.3-4.6); Glomerular Filtration Rate 77.9 mL/min (90-130); Glucose 99 mg/dL (65-115); Lipase 51 U/L (13-60); Osmolality Calculated 280 mOsm/kg (285-295); Potassium 4.1 mmol/L (3.5-5.1); Sodium 136 mmol/L (136-145); Total Bilirubin 0.3 mg/dL (0.15-1.2); Total Protein 7.7 g/dL (6.6-8.7)
[2024-03-25 20:40] LABS: Troponin 5 2HR Delta 0.00001 ABS# (0-10)
--- NOTE | 2024-03-25 21:11 | PC.NURSE ---
Dr Haile stated that he did not want the 2nd ordered EKG previous to discharge.
[2024-03-25 21:12] VITALS: BP 150/90; PULSE 81; O2SAT 96
[2024-03-25 21:13] VITALS: BP 150/90; PULSE 81; O2SAT 96
== END 2024-03-25 21:15 | disposition home or self-care (01) ==
PROVIDERS: Emergency Medicine; Emergency Provider Emergency Medicine
DX: R07.89 Other chest pain (principal); E11.9 Type 2 diabetes mellitus without complications
CPT/HCPCS: 36415; 71045; 80053; 83690; 84484; 85025; 93005; 99285

== ENCOUNTER 2024-04-10 12:52 | Emergency (ER) | payer SELFPAY ==
[2024-04-10 13:16] VITALS: BP 165/93; PULSE 67; RESP 18; TEMP 36.3; O2SAT 97; BMI 46.0
--- NOTE | 2024-04-10 14:10 | ED_ITS ---
HPI - Female Genitourinary 2 General: Chief complaint: Vaginal Bleeding Stated complaint: weak Time Seen by Provider: 04/10/24 14:01 Source: patient Mode of arrival: ambulatory Limitations: no limitations History of Present Illness: Patient is a 44-year-old female presents to ED today with complaint of painful and heavy vaginal bleeding. She states she has a longstanding history of abnormal uterine bleeding. Last year she was seeing Dr. Oleary for this and underwent hysteroscopy and curettage in 02/2023. She was found to have a normal endometrial cavity with no polyps or fibroids, moderate endometrial tissue, benign proliferative endometrium. She was given options (according to Dr. Oleary's note) of hormonal therapy versus hysterectomy. Patient states she was told she could not have the hysterectomy because of her weight. She had declined hormonal therapy. Patient states she bled every day for the past 2.5 months. She states she quit for 3 days and then started bleeding again 3 days ago. She states today it became heavy with clot passage. She feels dizzy. MD elicited complaint: vaginal bleeding Onset (ago): day(s) Severity: moderate Quality of pain: cramping Consistency: constant Vaginal discharge: none Vaginal bleeding: heavy and # pads per hour (2) Exacerbating factors: none Relieving factors: none Associated symptoms: Reports vaginal bleeding (small amount of clot; nothing stuck in os); Deny abdominal pain, headache(s), nausea, syncope or vaginal discharge Treatment prior to arrival: none Patient : No Related Data Home Medications Medication Instructions Recorded Confirmed cetirizine 10 mg tablet 10 mg PO BEDTIME PRN allergies 04/10/24 04/10/24 fluticasone propionate 50 2 spray intranasal DAILY PRN 04/10/24 04/10/24 mcg/actuation nasal allergies spray,suspension (Flonase Allergy Relief) Allergies Allergy/AdvReac Type Severity Reaction Status Date / Time aspirin Allergy ALGY-Hives Verified 11/22/23 14:25 Review of Systems 2 Const: Denies: fever(s), chills, body aches, fatigue or malaise Eyes: Denies: change in vision or blurry vision Card: Denies: chest pain, palpitations, irregular heart rhythm, lightheadedness, syncope or dyspnea on exertion Resp: Denies: dyspnea, productive cough or pain on inspiration GI: Denies: abdominal pain, nausea, vomiting, heartburn or diarrhea : Reports: vaginal bleeding, dysmenorrhea, irregular period, metrorrhagia, change in menstrual flow and pelvic pain; Denies: flank pain, difficulty voiding, dysuria, urinary frequency, urinary urgency, urinary hesitancy, genital pruritis, vaginal dryness, vaginal odor or vaginal discharge Musc: Denies: neck pain, back pain or joint pain Skin/Breast: Denies: rash Neuro: Reports: dizziness; Denies: headache(s), numbness in extremities, weakness in extremities, sensory changes, difficulty walking or confusion PFSH ED 2 PFSH: Medical History Diabetes Heart murmur Family History Father Hypertension Thyroid disease Diabetes Mother Hypertension Diabetes Denies family history of Colon cancer Ovarian cancer Heart disease Hyperlipidemia Breast cancer Uterine cancer Stroke Physical Exam 2 Const: COMMON NORMALS: no acute distress, patient oriented x3, no limitations, alert and well nourished GENERAL APPEARANCE: cooperative NUTRITIONAL APPEARANCE: obese morbidly obese (BMI 46.0) HENMT: COMMON NORMALS: normocephalic and atraumatic HEAD & SCALP: n ormocephalic and atraumatic Neck/C-Spine: COMMON NORMALS: full ROM, no lymphadenopathy, supple and no meningeal signs Chest: COMMONS NORMALS: normal inspection of the chest Resp: COMMON NORMALS: normal respiratory effort and clear to auscultation bilaterally AUSCULTATION: clear to auscultation bilaterally Cardio: COMMON NORMALS: regular rate and regular rhythm RATE: regular rate RHYTHM: regular rhythm GI: COMMON NORMALS: Normal to inspection, nondistended, normoactive bowel sounds present, Soft to palpation, non-tender, No hepatosplenomegaly present and no masses PALPATION: Yes Soft to palpation and Yes No hepatosplenomegaly present : COMMON NORMALS: Yes no CVA tenderness BLADDER/KIDNEY EXAM: Yes no CVA tenderness SPECULUM EXAM - VAGINA: Yes vaginal bleeding (small amount of clot; nothing stuck in os) SPECULUM EXAM - CERVIX: No Tissue present in the cervical os and Yes Other cervical findings present (cervix appears normal) O B/EXTERNAL & SPECULUM: vaginal bleeding (small amount of clot; nothing stuck in os) Back/Pelvis: COMMON NORMALS: no CVA tenderness and thoracic and lumbar spine normal to inspection Extremity: COMMON NORMALS: normal to inspection Neuro: BENJAMIN COMA SCALE: document GCS findings [place] coma scale eye opening: Spontaneous [place] coma scale verbal response: Orientated Benjamin coma scale motor response: Obey commands Benjamin coma scale total score: 15 COMMON NORMALS: patient oriented x3, moves all extremities, no focal motor deficits, no sensory deficits noted and gait normal SENSORIUM/ORIENTATION: Yes alert M ENINGEAL SIGNS: Yes no meningeal signs Skin: COMMON NORMALS: no rashes or lesions noted GENERAL SKIN EXAM: no rashes or lesions noted Course 2 Vital Signs: Vital signs: Vital Signs Temperature 97.3 F L 04/10/24 13:16 Pulse Rate 67 04/10/24 13:16 Respiratory Rate 18 04/10/24 13:16 Blood Pressure 165/93 04/10/24 13:16 Pulse Oximetry 97 04/10/24 13:16 MDM - Female Medical Decision Making Patient here for painful and heavy vaginal bleeding. She arrives in no acute distress. Vital signs are stable. Her hemoglobin today is 11. It was 11.2 almost 2 weeks ago. Remainder of blood work is unremarkable. Ultrasound imaging obtained and showed small leiomyoma/could not visualize either ovary. At this time patient is stable for discharge from an emergency standpoint. Recommend she follow-up with [facility]IC [employer]NAL[facility] and referral was placed for this. Return ED precautions discussed. Medical Records I reviewed the patient's medical records. Lab Data I reviewed the patient's lab results. 04/10/24 14:20 04/10/24 14:20 Radiology Impressions Transvaginal US 04/10/24 14:18 IMPRESSION: Small leiomyoma as above. Nonvisualization of the bilateral ovaries. Otherwise, normal pelvic ultrasound. Laboratory Results WBC 8.34 10^3/uL (3.29-11.43) 04/10/24 14:20 RBC 3.99 10^6/uL (3.85-5.65) 04/10/24 14:20 Hgb 11.00 g/dL (11.27-16.99) L 04/10/24 14:20 Hct 34.9 % (36-47) L 04/10/24 14:20 MCV 87.5 fl (85-98) 04/10/24 14:20 MCH 27.6 pg (27-33) 04/10/24 14:20 MCHC 31.5 g/dL (30-55) 04/10/24 14:20 RDW 12.2 % (12.1-15.1) 04/10/24 14:20 Plt Count 366 10^3/cmm (157-399) 04/10/24 14:20 MPV 10.0 fL (7.4-10.4) 04/10/24 14:20 Neut % (Auto) 83.0 % 04/10/24 14:20 Lymph % (Auto) 11.5 % 04/10/24 14:20 [place] % (Auto) 4.2 % 04/10/24 14:20 Eos % (Auto) 0.2 % 04/10/24 14:20 Baso % (Auto) 0.6 % 04/10/24 14:20 Neut # (Auto) 6.92 10^3/uL (1.8-7.7) 04/10/24 14:20 Lymph # (Auto) 1.0 10^3/uL (0.8-4.8) 04/10/24 14:20 [place] # (Auto) 0.4 10^3/uL (0.2-0.9) 04/10/24 14:20 Eos # (Auto) 0.0 10^3/uL (0.0-0.8) 04/10/24 14:20 Baso # (Auto) 0.1 10^3/uL (0.0-0.1) 04/10/24 14:20 Nucleated RBC % (auto) 0 % 04/10/24 14:20 Nucleated RBCs # 0.0 /100WBC 04/10/24 14:20 Sodium 133 mmol/L (136-145) L 04/10/24 14:20 Potassium 4.0 mmol/L (3.5-5.1) 04/10/24 14:20 Chloride 97 mmol/L (98-107) L 04/10/24 14:20 Carbon Dioxide 25 mmol/L (22-29) 04/10/24 14:20 Anion Gap 15.0 (5-19) 04/10/24 14:20 BUN 12 mg/dL (6-20) 04/10/24 14:20 Creatinine 0.9 mg/dL (0.5-0.9) 04/10/24 14:20 GFR Calculation 68.0 mL/min (90-130) L 04/10/24 14:20 Glucose 116 mg/dL (65-115) H 04/10/24 14:20 Calculated Osmolality 277 mOsm/kg (285-295) L 04/10/24 14:20 Calcium 9.0 mg/dL (8.5-10.5) 04/10/24 14:20 Total Bilirubin 0.5 mg/dL (0.15-1.2) 04/10/24 14:20 AST 19 U/L (0-32) 04/10/24 14:20 ALT 18 U/L (0-33) 04/10/24 14:20 Alkaline Phosphatase 99 U/L (35-105) 04/10/24 14:20 Total Protein 7.5 g/dL (6.6-8.7) 04/10/24 14:20 Albumin 3.9 g/dL (3.5-5.2) 04/10/24 14:20 Globulin 3.6 g/dL (1.3-4.6) 04/10/24 14:20 HCG, Qual Negative (Negative) 04/10/24 14:20 All radiology interpretation(s) finalized by discharge Discharge Plan Discharge Patient Disposition: Home Clinical Impression: Abnormal uterine bleeding Condition: Stable Prescriptions: No Action cetirizine 10 mg tablet 10 mg PO BEDTIME PRN (Reason: allergies) fluticasone propionate [Flonase Allergy Relief] 50 mcg/actuation spray,suspension 2 spray intranasal DAILY PRN (Reason: allergies) Rx Instructions: administer into each nostril Discharge Orders: Discharge ED (Routine); Ordered 04/10/24 Ordered By: Charlene Willard Patient Instructions: Abnormal (Dysfunctional) Uterine Bleeding (ED) Activity Restrictions/Additional Instructions: As we discussed, case management should reach out to you shortly to help set you up with a follow-up appointment with gynecology for further evaluation and treatment options regarding your vaginal bleeding. You need to return to the emergency department for worsening pain, worsening bleeding, lightheadedness/passing out episodes, racing heart rate, generally feeling worse or unwell, or any other concerns you may have. Coding Level of Care Code ED Director Of Cardiopulmonary Services for Beau Michelle
--- NOTE | 2024-04-10 14:18 | USR_ITS ---
PROCEDURE INFORMATION: Exam: US Pelvis, Transvaginal, Non-Obstetric Exam date and time: 04/10/2024 2:50 PM Age: 44 years old Clinical indication: Pelvic pain; Prior surgery; Surgery date: 6+ months; Surgery type: Unsure of dates but patient has had a tubal ligation; Additional info: Heavy painful bleeding TECHNIQUE: Imaging protocol: Real-time transvaginal pelvic (non-obstetric) ultrasound with image documentation. Transvaginal imaging was used for better evaluation of the endometrium, adnexa, and/or cervix. COMPARISON: US transvaginal [id number] 12/31/2022 12:29 PM FINDINGS: Uterus measures 9.9 x 7.1 x 5.2 cm. Hypoechoic lesion measuring 1.7 x 1.5 x 1.4 cm with scant vascularity likely representing small leiomyoma. Endometrium measures 1.3 cm. Bilateral ovaries are not visualized. Scant fluid within the cul-de-sac, likely physiologic. US/US transvaginal [id number] IMPRESSION: Small leiomyoma as above. Nonvisualization of the bilateral ovaries. Otherwise, normal pelvic ultrasound.
[2024-04-10 14:24] LABS: Basophils # 0.1 10^3/uL (0.0-0.1); Basophils % 0.6 %; Eosinophils % 0.2 %; Hematocrit 34.9 % (36-47); Lymphocytes % 11.5 %; Mean Corpuscular HGB Conc 31.5 g/dL (30-55); Mean Corpuscular Hemoglobin 27.6 pg (27-33); Mean Corpuscular Volume 87.5 fl (85-98); Monocytes # 0.4 10^3/uL (0.2-0.9); Monocytes % 4.2 %; Neutrophils # 6.92 10^3/uL (1.8-7.7); Nucleated Red Blood Cells % 0 %; Platelet Count 366 10^3/cmm (157-399); Red Blood Count 3.99 10^6/uL (3.85-5.65); Red Cell Distribution Width 12.2 % (12.1-15.1); White Blood Count 8.34 10^3/uL (3.29-11.43)
[2024-04-10 14:34] LABS: HCG, Serum Qual Negative (Negative)
[2024-04-10 14:42] LABS: Alanine Aminotransferase 18 U/L (0-33); Albumin Level 3.9 g/dL (3.5-5.2); Alkaline Phosphatase 99 U/L (35-105); Aspartate Amino Transferase 19 U/L (0-32); Blood Urea Nitrogen 12 mg/dL (6-20); Carbon Dioxide 25 mmol/L (22-29); Chloride 97 mmol/L (98-107); Creatinine Clr Calc Pharmacy 109.9202; Globulin 3.6 g/dL (1.3-4.6); Glucose 116 mg/dL (65-115); Osmolality Calculated 277 mOsm/kg (285-295); Sodium 133 mmol/L (136-145); Total Bilirubin 0.5 mg/dL (0.15-1.2); Total Protein 7.5 g/dL (6.6-8.7)
[2024-04-10 16:10] VITALS: BP 145/90; BP 148/98; BP 154/101; PULSE 84; PULSE 85; PULSE 88
[2024-04-10 16:12] VITALS: BP 145/91; PULSE 88; O2SAT 99
--- NOTE | 2024-04-12 07:34 | DCPLANNER ---
messaged [facility] for er f/u
== END 2024-04-10 16:12 | disposition home or self-care (01) ==
PROVIDERS: Emergency Provider Physician Assistant
DX: N93.9 Abnormal uterine and vaginal bleeding, unspecified (principal); E11.9 Type 2 diabetes mellitus without complications
CPT/HCPCS: 76830; 80053; 84703; 85025; 99284; E0352

== ENCOUNTER 2024-04-27 07:37 | Emergency (ER) | payer OTHER, SELFPAY ==
[2024-04-27 07:48] VITALS: BP 133/80; PULSE 94; RESP 17; TEMP 36.9; O2SAT 95; BMI 45.1
--- NOTE | 2024-04-27 07:50 | ECG_ITS ---
[email or web address] 2024[facility]27 Pat Name: Marley Zamarripa Department: Room: Gender: Female Shank Boner: : 1980 Requested By: Arthur Castañeda Order Number: [id number] Radha MD: Tena Torres M.D. Measurements Intervals [place] Rate: 90 P: 33 MA: 162 QRS: -3 QRSD: 87 T: 70 QT: 358 QTc: 440 Interpretive Statements SINUS RHYTHM POSSIBLE ANTERIOR MYOCARDIAL INFARCTION , PROBABLY OLD [30 ms Q WAVE IN V3/V4, OR R < 0.2 mV IN V4] Compared to ECG 03/25/2024 18:02:34 Sinus tachycardia no longer present Myocardial infarct finding still present Electronically Signed On 04-28-2024 17:43:10 PUMPER GAUGER by Tena Torres M.D. [id number]
[2024-04-27 07:59] VITALS: BP 133/80; PULSE 87; RESP 16; O2SAT 95
[2024-04-27 08:57] LABS: Covid PCR NEGATIVE (Negative); Influenza A POSITIVE (Negative); Influenza B NEGATIVE (Negative); Respiratory Syncytial Virus Ce NEGATIVE (Negative)
--- NOTE | 2024-04-27 09:03 | W.ED.URI ---
HPI - URI/Sore Throat General: Chief Complaint: Upper Respiratory Infection Stated Complaint: weakness Time Seen by Provider: 04/27/24 07:41 History of Present Illness: 44-year-old female presents emergency room planing nausea, flulike symptoms she has had contact with friends and family who are known to be flu a positive. Symptoms began yesterday. She not been tested yet no significant past medical history Associated symptoms: Deny abdominal pain, chills, chest pain or fever(s) Related Data Home Medications ?Medication ?Instructions ?Recorded ?Confirmed cetirizine 10 mg tablet 10 mg PO BEDTIME PRN allergies 04/10/24 04/26/24 fluticasone propionate 50 2 spray intranasal DAILY PRN 04/10/24 04/26/24 mcg/actuation nasal allergies spray,suspension (Flonase Allergy Relief) Previous Rx's ?Medication ?Instructions ?Recorded promethazine 25 mg tablet 25 mg PO Q6H PRN nausea and 04/27/24 vomiting #20 tabs Allergies Allergy/AdvReac Type Severity Reaction Status Date / Time aspirin Allergy ALGY-Hives Verified 04/26/24 09:32 Review of Systems Const: Denies: fever(s) or chills Card: Denies: chest pain Resp: Reports: dyspnea, non-productive cough and chest congestion GI: Denies: abdominal pain : Denies: dysuria, urinary frequency or urinary urgency Musc: Denies: neck pain or back pain Skin/Breast: Denies: rash PFSH ED PFSH: Medical History Diabetes Heart murmur Family History Father Hypertension Thyroid disease Diabetes Mother Hypertension Diabetes Denies family history of Colon cancer Ovarian cancer Heart disease Hyperlipidemia Breast cancer Uterine cancer Stroke Social History Smoking and tobacco/nicotine status: never used tobacco/nicotine Physical Exam Const: GENERAL APPEARANCE: cooperative and disheveled ORIENTATION/CONSCIOUSNESS: Yes awake, Yes oriented to person, Yes oriented to place and Yes oriented to time HENMT: COMMON NORMALS: normocephalic, atraumatic and hearing grossly normal bilaterally HEAD & SCALP: normocephalic and atraumatic Resp: COMMON NORMALS: normal respiratory effort, No retractions, No use of accessory muscles and clear to auscultation bilaterally AUSCULTATION: clear to auscultation bilaterally Cardio: COMMON NORMALS: regular rate, regular rhythm and No murmurs present (Cardio) RATE: regular rate RHYTHM: regular rhythm GI: COMMON NORMALS: Soft to palpation and No hepatosplenomegaly present AUSCULTATION: Yes normoactive bowel sounds PALPATION: Yes Soft to palpation, No Tenderness to palpation present (GI), No Guarding due to palpation present (GI) and Yes No hepatosplenomegaly present Extremity: COMMON NORMALS: normal to inspection, capillary refill normal, no clubbing, cyanosis or edema, no calf tenderness and no pedal edema Neuro: SENSORIUM/ORIENTATION: Yes oriented to person, Yes oriented to place and Yes oriented to time Skin: COMMON NORMALS: no rashes or lesions noted GENERAL SKIN EXAM: no rashes or lesions noted Course Vital Signs: Vital signs: Vital Signs Temperature 98.5 F 04/27/24 07:48 Pulse Rate 93 04/27/24 09:11 Respiratory Rate 16 04/27/24 09:11 Blood Pressure 150/93 04/27/24 09:11 Pulse Oximetry 98 04/27/24 09:11 Oxygen Delivery Me thod Room Air 04/27/24 07:59 MDM - URI/Sore Throat Medical Decision Making Flu a positive consistent with presenting history and symptoms. Discussed Tamiflu patient declined discharge home promethazine to use as needed supportive cares follow-up as needed Lab Data Laboratory Results Coronavirus (PCR) Negative (Negative) 04/27/24 07:51 Influenza A (PCR) Positive (Negative) 04/27/24 07:51 Influenza Type B (PCR) Negative (Negative) 04/27/24 07:51 RSV (PCR) Negative (Negative) 04/27/24 07:51 No radiology studies performed this visit Discharge Plan Discharge Patient Disposition: Home Clinical Impression: Influenza Condition: Stable Prescriptions: New promethazine 25 mg tablet 25 mg PO Q6H PRN (Reason: nausea and vomiting) Qty: 20 0RF No Action cetirizine 10 mg tablet 10 mg PO BEDTIME PRN (Reason: allergies) fluticasone propionate [Flonase Allergy Relief] 50 mcg/actuation spray,suspension 2 spray intranasal DAILY PRN (Reason: allergies) Rx Instructions: administer into each nostril Discharge Orders: Discharge ED (Routine); Ordered 04/27/24 Ordered By: Arthur Jameson Discharge Diet: Usual diet Discharge Activity: Increase activity as tolerated Patient Instructions: Influenza (ED), Opioid Safety, Pain Management Activity Restrictions/Additional Instructions: Thank you for choosing [facility] for your healthcare needs today. It is very important that you follow up as instructed or that you return to the Emergency Department should you have concerns or if your condition changes or worsens in any way. Print Language: Frisian Coding Level of Care Code ED Drawing Machine Operator for Beau Michelle
[2024-04-27 09:11] VITALS: BP 150/93; PULSE 93; RESP 16; O2SAT 98
== END 2024-04-27 09:21 | disposition home or self-care (01) ==
PROVIDERS: Emergency Provider Family Medicine
DX: J10.1 Influenza due to other identified influenza virus with other respiratory manifestations (principal); Z11.52 Encounter for screening for COVID-19; E11.9 Type 2 diabetes mellitus without complications
CPT/HCPCS: 87637; 93005; 99284

== ENCOUNTER 2024-08-17 10:05 | Inpatient (IN) | payer OTHER, SELFPAY ==
--- NOTE | 2024-08-10 09:07 | ANES.PREANE2 ---
Pre-Anesthetic Assessment Height/Weight: Height 1.68 m Operation Date: 08/17/24 07:00 Proposed Procedures p Laparoscopic Assist Vaginal Hysterectomy 03267, N93.9(Not Applicable) - Diego Oleary MD Familial anesthetic complications: None Was Beta Cori taken within 24 hours: N/A Was Clonidine taken within 24 hours: N/A Last intake: > 8 hrs Social No alcohol and No tobacco Exam alert, oriented x 3, clear to auscultation bilaterally and regular rate & rhythm Airway Mallampati: Class III Dentition: full CV/HEM Murmur, patient has been told she has enlarged heart by her father Patient denies CP, SOB. Has had dizzy spells in the past including two syncopal episodes that she attributed to anemia from chronic bleeding Metabolic Diabetes Mellitus Anesthetic Plan ASA status: 3 Anesthesia: General Risk of > 500 ml blood loss (7ml/kg in children): Yes, adequate IV access and fluids planned Medications/Allergies Home Medications ?Medication ?Instructions ?Recorded ?Confirmed ?Last Taken ?Type fluticasone propionate 50 2 spray intranasal DAILY PRN 04/10/24 08/10/24 Unknown History mcg/actuation nasal allergies spray,suspension (Flonase Allergy Relief) Allergies Allergy/AdvReac Type Severity Reaction Status Date / Time aspirin Allergy ALGY-Hives Verified 08/10/24 08:43 [facility] Anesthesia Medical History Diabetes Heart murmur Family History Father Hypertension Thyroid disease Diabetes Mother Hypertension Diabetes Denies family history of Colon cancer Ovarian cancer Heart disease Hyperlipidemia Breast cancer Uterine cancer Stroke Social History Smoking and tobacco/nicotine status: never used tobacco/nicotine
[2024-08-17] VITALS (18 sets, daily range): BP systolic 105–172; BP diastolic 53–100; PULSE 60–73; RESP 15–18; TEMP 36.1–36.8; O2SAT 93–100; BMI 46.1
--- NOTE | 2024-08-17 00:30 | W.PM.OPSFHP ---
Same Day Surgery H&P Indication for Procedure/HPI DATE OF PROCEDURE: August 17, 2024 CHIEF COMPLAINT/INDICATIONFOR SURGICAL PROCEDURE: prolonged and heavy menstrual bleeding PREOP DIAGNOSIS: menometrorrhagia PLANNED PROCEDURE: Operation Date: 08/17/24 07:00 Proposed Procedures p Laparoscopic Assist Vaginal Hysterectomy 67741, N93.9(Not Applicable) - Diego Oleary MD 44 y.o. h/o BTL Periods prior to September 2022 were normal and regular Then periods became prolonged and very heavy with passing large clots h/o hysteroscopy, curettage of uterus February 20, 2023 Findings: normal endometrial cavity No polyps / fibroids moderate endometrial tissue pathology benign proliferative endometrium still having prolonged and heavy periods now scheduled for hysterectomy Medications/Allergies* Home Medications ?Medication ?Instructions ?Recorded ?Confirmed ?Type fluticasone propionate 50 2 spray intranasal DAILY PRN 04/10/24 08/10/24 History mcg/actuation nasal allergies spray,suspension (Flonase Allergy Relief) Allergies/Adverse Reactions Allergy/AdvReac Type Severity Reaction Status Date / Time aspirin Allergy ALGY-Hives Verified 08/10/24 08:43 Pertinent History/Comorbid Conditions* Medical History (Updated 05/05/24 @ 00:00 by ETHAN Seymour) Diabetes Heart murmur Family History (Updated 12/24/22 @ 14:05 by Stan Salvador) Diabetes Father Mother Hypertension Father Mother Thyroid disease Father Denies family history of Colon cancer Ovarian cancer Heart disease Hyperlipidemia Breast cancer Uterine cancer Stroke Social History Smoking and tobacco/nicotine status: never used tobacco/nicotine Pertinent Exam Findings alert, oriented x 3, clear to auscultation bilaterally and regular rate & rhythm Recommendations Surgery/Procedure today Coding Level of Care Code Acute Code for Chg Fwd
--- NOTE | 2024-08-17 06:37 | P.ANESASSM_ITS ---
Pre-Anesthetic Assessment Height/Weight: Height 5 ft 6 in Weight 286 lb Temp Pulse Resp BP Pulse Ox O2 Del Method 97 F L 62 18 172/100 100 Room Air 08/17/24 06:19 08/17/24 06:19 08/17/24 06:19 08/17/24 06:19 08/17/24 06:19 08/17/24 06:19 Preop Diagnosis: menometrorrhagia Operation Date: 08/17/24 07:00 Proposed Procedures p Laparoscopic Assist Vaginal Hysterectomy 82274, N93.9(Not Applicable) - Diego Oleary MD Was Beta Cori taken within 24 hours: N/A Was Clonidine taken within 24 hours: N/A Last intake: Intake Last Liquid Date 08/16/24 Last Liquid Time 20:00 Last Solid Date 08/16/24 Last Solid Time 19:00 Social No alcohol and No tobacco Exam alert, oriented x 3, clear to auscultation bilaterally and regular rate & rhythm Ejection flow murmur noted Anesthetic Plan ASA status: 3 Anesthesia: General Other: No prior issues with anesthesia NPO since yesterday evening History of diabetes, no home meds Patient states that she had an enlarged heart as a child but denies any chest pain or shortness of breath. She states that she knows she has a murmur. Patient has had a few dizzy spells in the past with 2 syncopal episodes that she states are from chronic anemia BMI of 46 METs greater than 4 Plan for GETA Medications/Allergies Home Medications ?Medication ?Instructions ?Recorded ?Confirmed ?Last Taken ?Type fluticasone propionate 50 2 spray intranasal DAILY PRN 04/10/24 08/10/24 Unknown History mcg/actuation nasal allergies spray,suspension (Flonase Allergy Relief) Allergies Allergy/AdvReac Type Severity Reaction Status Date / Time aspirin Allergy ALGY-Hives Verified 08/10/24 08:43 REPLACED BY [facility] Anesthesia Medical History Diabetes Heart murmur Family History Father Hypertension Thyroid disease Diabetes Mother Hypertension Diabetes Denies family history of Colon cancer Ovarian cancer Heart disease Hyperlipidemia Breast cancer Uterine cancer Stroke Social History Smoking and tobacco/nicotine status: never used tobacco/nicotine
--- NOTE | 2024-08-17 06:39 | W.PM.OPSUD ---
Surgery/Procedure H&P Update DATE OF PROCEDURE: August 17, 2024 DATE H&P PERFORMED: 08/17/24 H&P UPDATE INFORMATION: I have reviewed H&P completed within last 30 days, I have examined patient prior to procedure and No changes to prior documentation PREOP DIAGNOSIS: menometrorrhagia PLANNED PROCEDURE: Operation Date: 08/17/24 07:00 Proposed Procedures p Laparoscopic Assist Vaginal Hysterectomy 48126, N93.9(Not Applicable) - Diego Oleary MD
[2024-08-17] MEDS: sodium chloride 0.9% 1,000 ML 30 ML IV (06:46)
[2024-08-17] MEDS: ceFAZolin 2,000 mg SDV 2000 MG IVP (07:15)
[2024-08-17] MEDS: metroNIDAZOLE IV 500 MG/100 ML PREMIX 100 MG IV (07:28)
[2024-08-17] MEDS: BUPivacaine 0.5% INJ 30 mL INJECTION (09:08)
[2024-08-17] MEDS: BUPivacaine liposome 13.3 mg/mL SDV 20 mL 266 MG INFILTRATI (09:08)
--- NOTE | 2024-08-17 10:10 | P.OP_ITS ---
Operative Report Date of procedure: August 17, 2024 Pre-op diagnosis: menometrorrhagia Post-op diagnosis: same Post-op findings: uterus mildly enlarged no fibroids right fallopian tube dilated normal left fallopian tube normal ovaries normal and intact bladder Procedure done: Total abdominal hysterectomy Bilateral salpingectomy Implants: none Specimens removed/disposition: uterus, bilateral fallopian tubes Surgeon: Diego Oleary MD Anesthesia: General Estimated blood loss (mL): 200 Complications: none Findings: uterus mildly enlarged no fibroids right fallopian tube dilated normal left fallopian tube normal ovaries normal and intact bladder Condition: stable Disposition: PACU Brief History: 44 y.o. with menometrorrhagia Procedure: Informed consent obtained. The patient was taken to the operating room and placed supine on the table. General endotracheal anesthesia was induced. Patient was placed in dorsolithot letty position, examination of the cervix showed it was high up in the vaginal canal with no descent with traction. It was decided to proceed with open abdominal hysterectomy instead of vaginal hysterectomy. The abdomen was prepped and draped in the usual sterile fashion. A marie catheter was placed which drained clear urine. A pfannenstiel incision was made and carried down through skin and subcutaneous tissue and fascia. The fascia was sharply incised. The rectus muscles were and the abdomen was entered bluntly in the midline. The pelvic contents were visualized and examined. An Sanjeev-O retractor was placed. The bowels were packed out of the way. The Ligasure device was used throughout for vessel sealing and cutting. The hysterectomy was begun by dividing and ligating the round ligaments bilaterally. The infundibulopelvic ligaments were divided and skeletonized bilaterally. The ovaries were preserved by dividing the uterus from the uteroovarian ligaments. The vesicouterine peritoneal fold was incised in a transverse curvilinear fashion and sharply dissected downward mobilizing the bladder off the lower uterine segment. The uterine vessels were skeletonized and bilaterally divided and ligated. The procedure was carried down on both sides of the uterus until the cardinal uterosacral ligament was reached. The cervix was then incised. Due to the patient?s morbid obesity and deep pelvis, it was difficult to determine the terminus of the cervix. A partial supracervical hysterectomy was performed. The uterus was removed. The cervical stump was closed with O- Vicryl. No bleeding was seen. The right fallopian tube appeared dilated. It was decided to remove both fallopian tubes using the Ligasure device. No bleeding was seen. The ovaries were normal and intact. The pelvis was inspected and irrigated. There was no bleeding. The abdominal packs were removed as was the retractor. The fascia was then closed with a continuous stitch of O-Vicryl. The subcutaneous tissue was irrigated and inspected for hemostasis. Interrupted stitches of O-Vicryl were used for the subcutaneous tissue. The skin was then reapproximated using Insorb absorbable subcuticular skin lorin. The patient was then placed supine, extubated, and taken to the recovery room. Postoperative condition: stable EBL: 200 cc Complications: none Sponge, needle, instruments counts were correct x two.
[2024-08-17] MEDS: fentaNYL 50 mcg/mL INJ 2mL IVP (10:18)
--- NOTE | 2024-08-17 10:39 | ANE.PACU2 ---
Inpatient post-anesthesia follow up: Airway intact: Yes Vital signs: Temperature 97.6 F Pulse Rate 65 Respiratory Rate 17 Blood Pressure 106/79 Pulse Oximetry 100 Oxygen Delivery Me thod Room Air Oxygen Flow Rate 2 Fraction of Inspir ed Oxygen Hydration adequate: Yes Nausea and vomiting: No Pain level: 1 Mental status: Baseline
[2024-08-17] MEDS: ketorolac 30 mg/mL INJ IVP ×3 (11:15→22:44)
[2024-08-17] MEDS: phenazopyridine 100 mg Tablet PO (11:15)
[2024-08-17] MEDS: HYDROcodone-acetaminophen 5-325 mg Tablet PO (11:15)
[2024-08-17] MEDS: dextrose 5%-lactated ringers 1,000 ML 125 ML IV (14:08)
[2024-08-17] MEDS: docusate sodium 100 mg Capsule PO (17:06)
--- NOTE | 2024-08-17 18:13 | PC.NURSE ---
Patient ambulated one lap around OB unit with RN at this time; patient tolerated activity well.
[2024-08-18 00:26] VITALS: BP 158/79
[2024-08-18] MEDS: dextrose 5%-lactated ringers 1,000 ML 125 ML IV (01:20)
[2024-08-18 04:13] VITALS: BP 146/89; PULSE 67; RESP 16; TEMP 36.4
[2024-08-18] MEDS: ketorolac 30 mg/mL INJ IVP (04:13)
[2024-08-18 05:20] LABS: Hematocrit 28.5 % (36-47); Mean Corpuscular HGB Conc 30.9 g/dL (30-55); Mean Corpuscular Hemoglobin 25.7 pg (27-33); Mean Corpuscular Volume 83.3 fl (85-98); Mean Platelet Volume 10.5 fL (7.4-10.4); Platelet Count 295 10^3/cmm (157-399); Red Blood Count 3.42 10^6/uL (3.85-5.65); Red Cell Distribution Width 14.8 % (12.1-15.1); White Blood Count 11.91 10^3/uL (3.29-11.43)
[2024-08-18] MEDS: enoxaparin 40 mg/0.4 mL Syringe SUBCUT (06:20)
[2024-08-18 06:24] VITALS: BP 149/86
[2024-08-18 10:57] VITALS: BP 147/89; PULSE 63; RESP 17; TEMP 36.7; O2SAT 98
[2024-08-18] MEDS: HYDROcodone-acetaminophen 5-325 mg Tablet PO (11:37)
[2024-08-18] MEDS: ibuprofen 800 mg tablet PO (11:37)
--- NOTE | 2024-08-18 11:50 | P.PN_ITS ---
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 Midline vertical wound clean and dry Ext: normal, no edema Pre-Op Hgb 11 Post-op Hgb 8.8 Urinary Catheter Management: Rush: Cath Placed During This Visit: yes, but has since been removed by the nurse Reason for Continuing Indwelling Catheter: Decision to DC Catheter Urinary Catheter Date of Insertion: 08/17/24 Urinary Catheter Time of Insertion: 07:24 Date Urinary Catheter Removed: 08/18/24 Time Urinary Catheter Discontinued: 05:05 Data 08/18/24 05:08 A&P Assessment and plan (1) S/P hysterectomy: POD #1 s/p total abdominal hysterectomy and bilateral salpingectomy Doing well Plan to discharge to home today Precautions / instructions given Call / return if fever, chills, pain, bleeding, nausea, vomiting, leg pain or swelling f/u in one week (2) Anemia: Rx FeSO4 325 mg po bid Encouraged iron-rich foods PDMP PDMP Reviewed: Last Reviewed 08/18/24 12:36 EDT by Diego Oleary MD Attestations 2 Medical Necessity Statement*: patient s/p hysterectomy, plan to discharge to home today Coding Level of Care Code Acute Code for Chg Fwd Diagnoses S/P hysterectomy Z90.710 Anemia D64.9
--- NOTE | 2024-08-18 12:15 | PM.OBGYDC ---
Discharge Providers MULTILITH OPERATOR Date of Admission: 08/17/24 10:05 Date of Discharge: 08/18/24 Attending Provider at Admission: Diego Oleary MD Attending Provider at Discharge: Diego Oleary MD Consults: none Primary MULTILITH OPERATOR: Diego Oleary MD Diagnoses at Discharge Discharge Diagnosis (1) S/P hysterectomy: Details from hospital stay: 44 y.o. h/o BTL history of prolonged, heavy, and painful periods patient was scheduled for hysterectomy for definitive treatment total abdominal hysterectomy and bilateral salpingectomy were performed without any complications patient did well postoperatively She was afebrile, able to eat and ambulate without any difficulties Patient's preop Hgb was 11 and postop Hgb was 8.8, but patient had no dizziness, weakness, palpitations, or shortness of breath She was discharged on the first postoperative day with instructions and precautions; and to take FeSO4 325 mg po bid Status: Acute (2) Anemia: Details from hospital stay: see above Status: Acute Reason for Visit Reason for Visit: N93.9 Brief History: 44 y.o. h/o BTL history of prolonged, heavy, and painful periods patient was scheduled for hysterectomy for definitive treatment Hospital Course Hospital Course 44 y.o. h/o BTL history of prolonged, heavy, and painful periods patient was scheduled for hysterectomy for definitive treatment total abdominal hysterectomy and bilateral salpingectomy were performed without any complications patient did well postoperatively She was afebrile, able to eat and ambulate without any difficulties Patient's preop Hgb was 11 and postop Hgb was 8.8, but patient had no dizziness, weakness, palpitations, or shortness of breath She was discharged on the first postoperative day with instructions and precautions; and to take FeSO4 325 mg po bid Physical Exam Narrative: General comfortable, awake, alert VS afebrile, normal Lungs: clear Cor: RRR Abd: soft, nontender. Pfannenstiel incision clean and dry Ext: normal, no edema Urinary Catheter Management: Rush: Cath Placed During This Visit: yes, but has since been removed by the nurse Reason for Continuing Indwelling Catheter: Decision to DC Catheter Urinary Catheter Date of Insertion: 08/17/24 Urinary Catheter Time of Insertion: 07:24 Date Urinary Catheter Removed: 08/18/24 Time Urinary Catheter Discontinued: 05:05 History History History 3 Term 3 0 Miscarriages/Ectopic 0 Living Children 3 Discharge Data Studies Completed and Pending Completed Studies During Hospitalization Category Date Time Status Pathology: Surgical [PTH] Routine Pth 08/17/24 09:38 Completed Laboratory Results WBC 11.91 10^3/uL (3.29-11.43) H 08/18/24 05:08 RBC 3.42 10^6/uL (3.85-5.65) L 08/18/24 05:08 Hgb 8.80 g/dL (11.27-16.99) L 08/18/24 05:08 Hct 28.5 % (36-47) L 08/18/24 05:08 MCV 83.3 fl (85-98) L 08/18/24 05:08 MCH 25.7 pg (27-33) L 08/18/24 05:08 MCHC 30.9 g/dL (30-55) 08/18/24 05:08 RDW 14.8 % (12.1-15.1) 08/18/24 05:08 Plt Count 295 10^3/cmm (157-399) 08/18/24 05:08 MPV 10.5 fL (7.4-10.4) H 08/18/24 05:08 Blood Type A Positive 08/17/24 06:30 Rho(D) Type Rh positive 08/17/24 06:30 Antibody Screen Negative 08/17/24 06:30 Procedures Performed total abdominal hysterectomy and bilateral salpingectomy Vitals Last Vital Signs Temp 98.0 F 08/18/24 10:57 Pulse 63 08/18/24 10:57 Resp 17 08/18/24 10:57 BP 147/89 08/18/24 10:57 Pulse Ox 98 08/18/24 10:57 O2 Del Method Room Air 08/17/24 22:46 O2 Flow Rate 2 08/17/24 10:32 Results Labs OB ([facility]): Blood Type A Positive 08/17/24 Antibody Screen Negative 08/17/24 Hct, (36-47) 28.5 % L 08/18/24 Hgb, (11.27-16.99) 8.80 g/dL L 08/18/24 Rho(D) Type Rh positive 08/17/24 Plt Count, (157-399) 295 10^3/cmm 08/18/24 TSH, (0.27-4.20) 1.66 uIU/mL 12/24/22 HCG, Qual, (Negative) Negative 04/10/24 Discharge Plan Discharge Patient Disposition: Home Condition: Stable Prescriptions: New oxycodone-acetaminophen 5-300 mg tablet 1 tab PO Q6H PRN (Reason: pain) Qty: 20 0RF oxycodone-acetaminophen [Percocet] 5-325 mg tablet 1 tab PO Q6H PRN (Reason: pain) Qty: 30 0RF Continued fluticasone propionate [Flonase Allergy Relief] 50 mcg/actuation spray,suspension 2 spray intranasal DAILY PRN (Reason: allergies) Rx Instructions: administer into each nostril Discharge Orders: Discharge Order (Routine); Ordered 08/18/24 Ordered By: Diego Oleary Referrals: Diego Oleary MD [Physician, MULTILITH OPERATOR] - 08/25/24 10:00 am Discharge Diet: Usual diet Discharge Activity: Increase activity as tolerated Patient Instructions: Oxycodone/Acetaminophen (By mouth), Acute Wound Care (DC), Hysterectomy (DC), OB Abdominal Surgery - C, Opioid Safety, Post Anesthesia Care Discharge Attestations MULTILITH OPERATOR Time Spent in Discharge Care*: less than 30 min Coding Level of Care Code Acute Code for Chg Fwd Diagnoses S/P hysterectomy Z90.710 Anemia D64.9
== END 2024-08-18 11:45 | disposition home or self-care (01) | DRG 742 ==
LOC: OBGYN 12:09
PROVIDERS: Admitting Provider Obstetrics & Gynecology; Visit Provider Obstetrics & Gynecology
PROC: 0UT90ZZ Resection of Uterus, Open Approach (ICD-10-PCS; CPT 58150; principal; 2024-08-17 07:00)
DX: N92.1 Excessive and frequent menstruation with irregular cycle (principal); Z68.42 Body mass index [BMI] 45.0-49.9, adult; E66.01 Morbid (severe) obesity due to excess calories; N85.2 Hypertrophy of uterus; D64.9 Anemia, unspecified
CPT/HCPCS: 36415; 51702; 85027; 86850; 86900; 88307; 96372; A4216; G0378; J0330; J0666; J0690; J1100; J1200; J1650; J1885; J2250; J2371; J2405; J2704; J2710; J3010; J3490; J7030; J7121; J9999

== ENCOUNTER 2024-11-13 19:04 | Emergency (ER) | payer OTHER, SELFPAY ==
[2024-11-13 19:09] VITALS: BP 167/100; PULSE 87; RESP 18; TEMP 36.6; O2SAT 96; BMI 45.1
--- NOTE | 2024-11-13 19:47 | XRR_ITS ---
PROCEDURE INFORMATION: Exam: XR Chest Exam date and time: 11/13/2024 8:05 PM Age: 44 years old Clinical indication: Near syncope with dizziness; Additional info: Dizzy TECHNIQUE: Imaging protocol: Radiologic exam of the chest. Views: 1 view. COMPARISON: CR XR chest 1V portable [id number] 03/25/2024 6:24 PM FINDINGS: Lungs: Unremarkable. No consolidation. Pleural spaces: Unremarkable. No pleural effusion. No pneumothorax. Heart/Mediastinum: Unremarkable. No cardiomegaly. Bones/joints: Unremarkable. XR/XR chest 1V portable [id number] IMPRESSION: No acute findings.
--- NOTE | 2024-11-13 19:47 | CTR_ITS ---
PROCEDURE INFORMATION: Exam: CT Head Without Contrast Exam date and time: 11/13/2024 8:11 PM Age: 44 years old Clinical indication: Near syncope with dizziness. History of vertigo. ; Additional info: Dizzy, near syncope TECHNIQUE: Imaging protocol: Computed tomography of the head without contrast. Radiation optimization: All CT scans at this facility use at least one of these dose optimization techniques: automated exposure control; mA and/or kV adjustment per patient size (includes targeted exams where dose is matched to clinical indication); or iterative reconstruction. COMPARISON: CT head wo con* [id number] 10/30/2019 4:57 AM RADIATION DOSE METRICS: Total DLP (mGy-cm): 1024.84 FINDINGS: Brain: Probable arachnoid cyst posteriorly in the posterior fossa. Cerebral ventricles: No ventriculomegaly. Paranasal sinuses: Visualized sinuses are unremarkable. No fluid levels. Mastoid air cells: Visualized mastoid air cells are well aerated. Bones: Unremarkable. No acute fracture. Soft tissues: Unremarkable. CT/CT head wo con* [id number] IMPRESSION: No acute intracranial abnormality.
--- NOTE | 2024-11-13 19:47 | W.ED.DIZZY ---
HPI - Dizziness General: Chief Complaint: Dizziness Stated Complaint: Ligh Headed Time Seen by Provider: 11/13/24 19:32 History of Present Illness: HPI Narrative: Patient is a female who presents to the ED with an episode of light-headedness and near-syncope that occurred approximately 30-40 minutes prior to arrival. She reports feeling like she was gonna pass out and states her son observed her eyes rolling in the back of my head. She also notes that her fingernails turned purple during the episode. 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 She denies shortness of breath. Patient states this specific presentation has not occurred before, though she reports a previous history of passing out in the presence of her and son. She was at work when the current episode occurred and had her son clinical nursing intern front of her in case she fell. Patient denies any prodromal symptoms, reporting she woke up feeling fine today. She denies recent illness, fever, vomiting, or coughing. The episode resolved spontaneously, though she reports some transient blurry vision that has since improved. Related Data Home Medications ?Medication ?Instructions ?Recorded ?Confirmed fluticasone propionate 50 2 spray intranasal DAILY PRN 04/10/24 10/28/24 mcg/actuation nasal allergies spray,suspension (Flonase Allergy Relief) Previous Rx's ?Medication ?Instructions ?Recorded nystatin-triamcinolone 100,000 1 applic topical TID #60 grams 09/23/24 unit/g-0.1 % topical cream meclizine 25 mg tablet 25 mg PO TID PRN dizziness or 11/13/24 vertigo #30 tabs Allergies Allergy/AdvReac Type Severity Reaction Status Date / Time aspirin Allergy ALGY-Hives Verified 11/13/24 19:14 Review of Systems Narrative: Constitutional: Denies fever. Reports diaphoresis during the episode. HEENT: Denies vision changes except for transient blurry vision during the episode, which has since improved. Cardiovascular: Denies chest pain. Reports history of heart murmur and valve abnormality. Respiratory: Denies shortness of breath or coughing. Gastrointestinal: Denies vomiting. Neurological: Reports light-headedness and near-syncope. Denies seizure activity or loss of consciousness. Skin: Reports peroneals (likely referring to extremities) turning purple during the episode. [facility] ED PFSH: Medical History Diabetes Heart murmur Surgical History S/P hysterectomy Family History Father Hypertension Thyroid disease Diabetes Mother Hypertension Diabetes Denies family history of Colon cancer Ovarian cancer Heart disease Hyperlipidemia Breast cancer Uterine cancer Stroke Social History Smoking and tobacco/nicotine status: never used tobacco/nicotine Physical Exam Const: COMMON NORMALS: no acute distress, patient oriented x3 and alert GENERAL APPEARANCE: cooperative; not ill appearing and not frail appearing HENMT: COMMON NORMALS: normocephalic, atraumatic and Normal external nose present HEAD & SCALP: normocephalic and atraumatic FACE & SINUS: normal facial exam and face symmetric NOSE: Normal external nose present Eye: COMMON NORMALS: Equal, round and reactive pupils present and EOMs intact bilaterally PUPIL: Yes Equal, round and reactive pupils present Neck/C-Spine: GENERAL: Yes trachea midline Chest: CHEST: Yes Symmetrical chest wall rise Resp: COMMON NORMALS: normal respiratory effort, No retractions, No use of accessory muscles and clear to auscultation bilaterally AUSCULTATION: clear to auscultation bilaterally Cardio: COMMON NORMALS: regular rate and regular rhythm RATE: regular rate RHYTHM: regular rhythm GI: COMMON NORMALS: Normal to inspection, nondistended, normoactive bowel sounds present Extremity: COMMON NORMALS: no pedal edema Neuro: BENJAMIN COMA SCALE: document GCS findings Benjamin coma scale eye opening: Spontaneous [place] coma scale verbal response: Orientated Benjamin coma scale motor response: Obey commands [place] coma scale total score: 15 COMMON NORMALS: patient oriented x3 SENSORIUM/ORIENTATION: Yes alert CRANIAL NERVES: Yes CN normal except as noted COORDINATION/BALANCE: pektlj-pa-wpss test normal and gjhn-od-jqiq test normal SPEECH: speech normal SENSORY EXAM: Yes extremities (intact) MOTOR EXAM: Pronator motor function not present and Normal motor muscle tone present throughout COORDINATION: dcomyj-kq-xomo test normal and xelc-le-divc test normal Psych: COMMON NORMALS: speech normal SPEECH: Yes normal speech Skin: COMMON NORMALS: no rashes or lesions noted GENERAL SKIN EXAM: no rashes or lesions noted Course Vital Signs: Vital signs: Vital Signs Temperature 98 F 11/13/24 19:09 Pulse Rate 87 11/13/24 21:43 Respiratory Rate 20 H 11/13/24 21:43 Blood Pressure 154/89 11/13/24 21:43 Pulse Oximetry 98 11/13/24 21:43 Oxygen Delivery Me thod Room Air 11/13/24 19:09 MDM - Dizziness Medical Decision Making 44-year-old female with near syncopal episode. No evidence of seizure in this patient. Her symptoms have improved essentially. She is mildly hypertensive. She is mildly hypertensive. She is nontachycardic. Nonhypoxic. She is neurologically intact. Head CT is negative. Chest x-ray is negative. EKG shows a sinus rhythm rate of 75 normal axis, normal intervals. LVH. No acute ST wave changes. CBC and BMP are normal. Troponin is nondetectable. TSH is normal. With resolution of her symptoms, negative workup, she will be allowed home. To return for repeated or new symptoms. Lab Data 11/13/24 19:56 11/13/24 19:56 Radiology Impressions Chest X-Ray 11/13/24 19:47 IMPRESSION: No acute findings. Head CT 11/13/24 19:47 IMPRESSION: No acute intracranial abnormality. Laboratory Results WBC 5.54 10^3/uL (3.29-11.43) 11/13/24 19:56 RBC 4.36 10^6/uL (3.85-5.65) 11/13/24 19:56 Hgb 11.40 g/dL (11.27-16.99) 11/13/24 19:56 Hct 35.9 % (36-47) L 11/13/24 19:56 MCV 82.3 fl (85-98) L 11/13/24 19:56 MCH 26.1 pg (27-33) L 11/13/24 19:56 MCHC 31.8 g/dL (30-55) 11/13/24 19:56 RDW 13.6 % (12.1-15.1) 11/13/24 19:56 Plt Count 351 10^3/cmm (157-399) 11/13/24 19:56 MPV 10.0 fL (7.4-10.4) 11/13/24 19:56 Neut % (Auto) 61.4 % 11/13/24 19:56 Lymph % (Auto) 30.5 % 11/13/24 19:56 Kimble % (Auto) 6.3 % 11/13/24 19:56 Eos % (Auto) 0.9 % 11/13/24 19:56 Baso % (Auto) 0.7 % 11/13/24 19:56 Neut # (Auto) 3.40 10^3/uL (1.8-7.7) 11/13/24 19:56 Lymph # (Auto) 1.7 10^3/uL (0.8-4.8) 11/13/24 19:56 Kimble # (Auto) 0.4 10^3/uL (0.2-0.9) 11/13/24 19:56 Eos # (Auto) 0.1 10^3/uL (0.0-0.8) 11/13/24 19:56 Baso # (Auto) 0.0 10^3/uL (0.0-0.1) 11/13/24 19:56 Nucleated RBC % (auto) 0 % 11/13/24 19:56 Nucleated RBCs # 0.0 /100WBC 11/13/24 19:56 Sodium 139 mmol/L (136-145) 11/13/24 19:56 Potassium 4.4 mmol/L (3.5-5.1) 11/13/24 19:56 Chloride 102 mmol/L (98-107) 11/13/24 19:56 Carbon Dioxide 27 mmol/L (22-29) 11/13/24 19:56 Anion Gap 14.4 (5-19) 11/13/24 19:56 BUN 13 mg/dL (6-20) 11/13/24 19:56 Creatinine 0.9 mg/dL (0.5-0.9) 11/13/24 19:56 GFR Calculation 68.0 mL/min (90-130) L 11/13/24 19:56 Glucose 91 mg/dL (65-115) 11/13/24 19:56 Calculated Osmolality 288 mOsm/kg (285-295) 11/13/24 19:56 Calcium 9.5 mg/dL (8.5-10.5) 11/13/24 19:56 Magnesium 2.1 mg/dL (1.7-2.3) 11/13/24 19:56 Total Bilirubin 0.2 mg/dL (0.15-1.2) 11/13/24 19:56 AST 16 U/L (0-32) 11/13/24 19:56 ALT 18 U/L (0-33) 11/13/24 19:56 Alkaline Phosphatase 119 U/L (35-105) H 11/13/24 19:56 Creatine Kinase 95 U/L (26-192) 11/13/24 19:56 Troponin T Baseline < 6 ng/L (0-10) 11/13/24 19:56 Total Protein 7.9 g/dL (6.6-8.7) 11/13/24 19:56 Albumin 4.3 g/dL (3.5-5.2) 11/13/24 19:56 Globulin 3.6 g/dL (1.3-4.6) 11/13/24 19:56 TSH 1.99 uIU/mL (0.27-4.20) 11/13/24 19:56 All radiology interpretation(s) finalized by discharge Discharge Plan Discharge Patient Disposition: Home Clinical Impression: Near syncope, Dizziness Condition: Stable Prescriptions: New meclizine 25 mg tablet 25 mg PO TID PRN (Reason: dizziness or vertigo) Qty: 30 0RF No Action nystatin-triamcinolone 100,000-0.1 unit/g-% cream 1 applic topical TID Qty: 60 2RF fluticasone propionate [Flonase Allergy Relief] 50 mcg/actuation spray,suspension 2 spray intranasal DAILY PRN (Reason: allergies) Rx Instructions: administer into each nostril Discharge Orders: Discharge ED (Routine); Ordered 11/13/24 Ordered By: Rodríguez Christensen Patient Instructions: Near Syncope (ED), Dizziness (ED), Opioid Safety, Pain Management, Patient Portal & [employer]al[employer] Instructions Activity Restrictions/Additional Instructions: Stay in a cool environment for the next 24 hours. Drink plenty of liquids. Check your blood pressure. Return for repeated episodes of syncope or passing out, development of chest discomfort, shortness of breath, any other concerns. If you are dizzy, you may try medication that can help. Return for worsening dizziness despite treatment. Follow-up with your doctor. Call Friday for a follow-up appointment. Print Language: French Coding Level of Care Code ED Preparation Plant Supervisor for Beau Michelle
--- NOTE | 2024-11-13 19:48 | ECG_ITS ---
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 Measurements Intervals [place] Rate: 77 P: 39 [place]: 166 QRS: -20 QRSD: 97 T: 57 QT: 378 QTc: 429 Interpretive Statements SINUS RHYTHM MODERATE VOLTAGE CRITERIA FOR LVH, CONSIDER NORMAL VARIANT [MEETS CRITERIA IN ONE OF: R(aVL), S(V1), R(V5), R(V5/V6)+S(V1)] POSSIBLE ANTERIOR MYOCARDIAL INFARCTION , OF INDETERMINATE AGE [30 ms Q WAVE IN V3/V4, OR R < 0.2 mV IN V4] Compared to ECG 04/27/2024 07:50:56 No significant changes Electronically Signed On 11-14-2024 22:09:13 CDT by Jonh Power M.D. [id number]
[2024-11-13 20:07] LABS: Hematocrit 35.9 % (36-47); Hemoglobin 11.40 g/dL (11.27-16.99); Mean Corpuscular HGB Conc 31.8 g/dL (30-55); Mean Corpuscular Hemoglobin 26.1 pg (27-33); Mean Corpuscular Volume 82.3 fl (85-98); Nucleated Red Blood Cells % 0 %; Platelet Count 351 10^3/cmm (157-399); Red Blood Count 4.36 10^6/uL (3.85-5.65); White Blood Count 5.54 10^3/uL (3.29-11.43)
[2024-11-13 20:42] LABS: Troponin(5th) Baseline < 6 ng/L (0-10)
[2024-11-13 20:52] LABS: Alanine Aminotransferase 18 U/L (0-33); Albumin Level 4.3 g/dL (3.5-5.2); Alkaline Phosphatase 119 U/L (35-105); Anion Gap 14.4 (5-19); Aspartate Amino Transferase 16 U/L (0-32); Blood Urea Nitrogen 13 mg/dL (6-20); Calcium 9.5 mg/dL (8.5-10.5); Carbon Dioxide 27 mmol/L (22-29); Chloride 102 mmol/L (98-107); Creatinine Clr Calc Pharmacy 108.7778; Globulin 3.6 g/dL (1.3-4.6); Glucose 91 mg/dL (65-115); Magnesium 2.1 mg/dL (1.7-2.3); Osmolality Calculated 288 mOsm/kg (285-295); Potassium 4.4 mmol/L (3.5-5.1); Sodium 139 mmol/L (136-145); Thyroid Stimulating Hormone 1.99 uIU/mL (0.27-4.20); Total Protein 7.9 g/dL (6.6-8.7)
--- NOTE | 2024-11-13 21:14 | ECG_ITS ---
[employer] Test Date: 2024-11-13 Pat Name: Marley Zamarripa Department: Room: Gender: Female Nurse Advisor: : 1980 Requested By: Rodríguez Bergman Order Number: [id number] Garcia MD: Jonh Power M.D. Measurements Intervals [place] Rate: 72 P: 44 [place]: 175 QRS: -16 QRSD: 94 T: 62 QT: 406 QTc: 445 Interpretive Statements SINUS RHYTHM MODERATE VOLTAGE CRITERIA FOR LVH, CONSIDER NORMAL VARIANT [MEETS CRITERIA IN ONE OF: R(aVL), S(V1), R(V5), R(V5/V6)+S(V1)] POSSIBLE ANTERIOR MYOCARDIAL INFARCTION , OF INDETERMINATE AGE [30 ms Q WAVE IN V3/V4, OR R < 0.2 mV IN V4] Compared to ECG 04/27/2024 07:50:56 No significant changes Electronically Signed On 11-15-2024 13:52:53 CDT by Jonh Power M.D. [email or web address]
[2024-11-13 21:43] VITALS: BP 154/89; PULSE 87; RESP 20; O2SAT 98
== END 2024-11-13 21:44 | disposition home or self-care (01) ==
PROVIDERS: Emergency Provider Emergency Medicine
DX: R55 Syncope and collapse (principal); R42 Dizziness and giddiness; E11.9 Type 2 diabetes mellitus without complications
CPT/HCPCS: 70450; 71045; 80053; 82550; 83735; 84443; 84484; 85025; 93005; 99285

== ENCOUNTER 2024-11-27 14:53 | Emergency (ER) | payer OTHER, SELFPAY ==
--- NOTE | 2024-11-27 14:59 | ECG_ITS ---
[email or web address] Test Date: 2024-11-27 Pat Name: Marley Zamarripa Department: Room: Gender: Female Bag Builder: : 1980 Requested By: Arthur Castañeda Order Number: [id number] Radha MD: Jonh Power M.D. Measurements Intervals [place] Rate: 78 P: 37 [place]: 160 QRS: -16 QRSD: 87 T: 56 QT: 376 QTc: 428 Interpretive Statements SINUS RHYTHM MODERATE VOLTAGE CRITERIA FOR LVH, CONSIDER NORMAL VARIANT [MEETS CRITERIA IN ONE OF: R(aVL), S(V1), R(V5), R(V5/V6)+S(V1)] POOR R WAVE PROGRESSION Compared to ECG 11/13/2024 21:14:23 NO SIGNIFICANT CHANGE Electronically Signed On 11-27-2024 18:48:41 CDT by Jonh Power M.D. [email or web address] [id number]
[2024-11-27 15:01] VITALS: BP 190/102; PULSE 76; RESP 18; TEMP 36.7; O2SAT 96
[2024-11-27 16:36] LABS: Hematocrit 35.5 % (36-47); Hemoglobin 11.10 g/dL (11.27-16.99); Mean Corpuscular HGB Conc 31.3 g/dL (30-55); Mean Corpuscular Hemoglobin 26.1 pg (27-33); Mean Corpuscular Volume 83.5 fl (85-98); Nucleated Red Blood Cells % 0 %; Platelet Count 314 10^3/cmm (157-399); Red Blood Count 4.25 10^6/uL (3.85-5.65); White Blood Count 5.83 10^3/uL (3.29-11.43)
[2024-11-27 16:56] LABS: Troponin(5th) Baseline < 6 ng/L (0-10)
[2024-11-27 16:59] LABS: Alanine Aminotransferase 17 U/L (0-33); Albumin Level 4.1 g/dL (3.5-5.2); Alkaline Phosphatase 109 U/L (35-105); Anion Gap 11.2 (5-19); Aspartate Amino Transferase 16 U/L (0-32); Blood Urea Nitrogen 10 mg/dL (6-20); Calcium 9.3 mg/dL (8.5-10.5); Carbon Dioxide 29 mmol/L (22-29); Chloride 99 mmol/L (98-107); Creatinine Clr Calc Pharmacy 98.4345; Globulin 3.3 g/dL (1.3-4.6); Glucose 92 mg/dL (65-115); Osmolality Calculated 279 mOsm/kg (285-295); Potassium 4.2 mmol/L (3.5-5.1); Sodium 135 mmol/L (136-145); Total Protein 7.4 g/dL (6.6-8.7)
[2024-11-27 18:32] VITALS: BP 184/103; PULSE 72; O2SAT 98
--- NOTE | 2024-11-27 18:35 | ECG_ITS ---
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 Measurements Intervals [place] Rate: 64 P: 48 SD: 163 QRS: -9 QRSD: 89 T: 50 QT: 413 QTc: 426 Interpretive Statements SINUS RHYTHM MINIMAL VOLTAGE CRITERIA FOR LVH, CONSIDER NORMAL VARIANT [MEETS CRITERIA IN ONE OF: R(aVL), S(V1), R(V5), R(V5/V6)+S(V1)] Compared to ECG 11/27/2024 14:59:01 No significant changes Electronically Signed On 11-27-2024 20:28:03 CDT by Jonh Power M.D. [email or web address] [id number]
--- NOTE | 2024-11-27 18:39 | ED_ITS ---
HPI - Chest Pain 2 General: Chief Complaint: Chest Pain Stated Complaint: Discomfort in Chest R arm going numb Time Seen by Provider: 11/27/24 18:27 History of Present Illness: 44-year-old female with complaints of in termittent substernal chest pain, come and go since last p.m. allergy to aspirin with hives. Nondrinker, non-smoker. Remote history as a baby of heart murmur. Blood pressure was quite elevated on arrival 180s/90s?100s, and continued throughout her stay. She does not have a primary care physician. She is up requesting assistance for primary care. As far as with her chest discomfort this is associated with mild shortness of breath, however no diaphoresis, or nausea. Associated symptoms: Deny abdominal pain, dyspnea, fever(s), nausea, palpitations or vomiting Related Data Home Medications ?Medication ?Instructions ?Recorded ?Confirmed fluticasone propionate 50 2 spray intranasal DAILY PRN 04/10/24 10/28/24 mcg/actuation nasal allergies spray,suspension (Flonase Allergy Relief) Previous Rx's ?Medication ?Instructions ?Recorded nystatin-triamcinolone 100,000 1 applic topical TID #6 0 grams 09/23/24 unit/g-0.1 % topical cream meclizine 25 mg tablet 25 mg PO TID PRN dizziness o r 11/13/24 vertigo #30 tabs nitroglycerin 0.4 mg sublingual 0.4 mg sublingual Q5M PRN chest 11/27/24 tablet pain #30 tabs Allergies Allergy/AdvReac Type Severity Reaction Status Date / Time aspirin Allergy ALGY-Hives Verified 11/27/24 15:03 Review of Systems 2 General: Reports: 10 or more systems reviewed and unremarkable except in HPI and below Const: Denies: fever(s) or chills Eyes: Denies: change in vision or blurry vision ENMT: Denies: throat pain or mouth pain Card: Denies: chest pain or palpitations Resp: Denies: dyspnea or non-productive cough GI: Denies: abdominal pain, nausea or vomiting : Denies: flank pain or difficulty voiding Musc: Denies: neck pain, back pain or extremity pain Skin/Breast: Denies: rash or pruritus Neuro: Denies: headache(s) or numbness in extremities Psych: Denies: anxiety or depression [facility] ED 2 PFSH: Medical History (Updated 11/27/24 @ 19:07 by ANA LAURA Rodriges) Diabetes Heart murmur Surgical History S/P hysterectomy Family History Father Hypertension Thyroid disease Diabetes Mother Hypertension Diabetes Denies family history of Colon cancer Ovarian cancer Heart disease Hyperlipidemia Breast cancer Uterine cancer Stroke Social History Smoking and tobacco/nicotine status: never used tobacco/nicotine Physical Exam 2 Const: COMMON NORMALS: no acute distress, patient oriented x3 and alert G ENERAL APPEARANCE: cooperative; not ill appearing and not frail appearing HENMT: COMMON NORMALS: normocephalic, atraumatic and Normal external nose present HEAD & SCALP: normocephalic and atraumatic FACE & SINUS: normal facial exam and face symmetric NOSE: Normal external nose present Eye: COMMON NORMALS: Equal, round and reactive pupils present and EOMs intact bilaterally PUPIL: Yes Equal, round and reactive pupils present Neck/C-Spine: GENERAL: Yes trachea midline Chest: CHEST: Yes Symmetrical chest wall rise Resp: COMMON NORMALS: normal respiratory effort, No retractions, No use of accessory muscles and clear to auscultation bilaterally AUSCULTATION: clear to auscultation bilaterally Cardio: COMMON NORMALS: regular rate, regular rhythm and No murmurs present (Cardio) RATE: regular rate RHYTHM: regular rhythm GI: COMMON NORMALS: Normal to inspection, nondistended, normoactive bowel sounds present : COMMON NORMALS: Yes no CVA tenderness BLADDER/KIDNEY EXAM: Yes no CVA tenderness Back/Pelvis: COMMON NORMALS: no CVA tenderness Extremity: COMMON NORMALS: no pedal edema Neuro: BENJAMIN COMA SCALE: document GCS findings Benjamin coma scale eye opening: Spontaneous [place] coma scale verbal response: Orientated [place] coma scale motor response: Obey commands Benjamin coma scale total score: 15 COMMON NORMALS: patient oriented x3 SENSORIUM/ORIENTATION: Yes alert CRANIAL NERVES: Yes CN normal except as noted COORDINATION/BALANCE: [id number] test normal and ttsm-wy-arwy test normal SPEECH: speech normal SENSORY EXAM: Yes extremities (intact) MOTOR EXAM: Pronator motor function not present and Normal motor muscle tone present throughout COORDINATION: f yekri-jk-obdi test normal and nenh-eh-rlqj test normal Psych: COMMON NORMALS: speech normal SPEECH: Yes normal speech Skin: COMMON NORMALS: no rashes or lesions noted GENERAL SKIN EXAM: no rashes or lesions noted Course 2 Vital Signs: Vital signs: Vital Signs Temperature 98.1 F 11/27/24 15:01 Pulse Rate 72 11/27/24 19:57 Respiratory Rate 18 11/27/24 15:01 Blood Pressure 175/122 11/27/24 19:57 Pulse Oximetry 96 11/27/24 19:57 Oxygen Delivery Me thod Room Air 11/27/24 19:22 MDM - Chest Pain Medical Decision Making Chest pain did improve after nitroglycerin, and blood pressure did as well. Referral has been made for case management to help with primary care. Given her history of heart murmur, will refer her to nonintervention cardiology for further workup including cardiac monitoring. She does have a family history of coronary artery disease. Medical Records I reviewed the patient's medical records. Lab Data I reviewed the patient's lab results. 11/27/24 16:14 11/27/24 16:14 Radiology Impressions Chest X-Ray 11/27/24 19:07 IMPRESSION: No acute findings. Laboratory Results WBC 5.83 10^3/uL (3.29-11.43) 11/27/24 16:14 RBC 4.25 10^6/uL (3.85-5.65) 11/27/24 16:14 Hgb 11.10 g/dL (11.27-16.99) L 11/27/24 16:14 Hct 35.5 % (36-47) L 11/27/24 16:14 MCV 83.5 fl (85-98) L 11/27/24 16:14 MCH 26.1 pg (27-33) L 11/27/24 16:14 MCHC 31.3 g/dL (30-55) 11/27/24 16:14 RDW 14.1 % (12.1-15.1) 11/27/24 16:14 Plt Count 314 10^3/cmm (157-399) 11/27/24 16:14 MPV 10.2 fL (7.4-10.4) 11/27/24 16:14 Neut % (Auto) 61.6 % 11/27/24 16:14 Lymph % (Auto) 28.8 % 11/27/24 16:14 Irwin % (Auto) 7.2 % 11/27/24 16:14 Eos % (Auto) 1.2 % 11/27/24 16:14 Baso % (Auto) 1.0 % 11/27/24 16:14 Neut # (Auto) 3.59 10^3/uL (1.8-7.7) 11/27/24 16:14 Lymph # (Auto) 1.7 10^3/uL (0.8-4.8) 11/27/24 16:14 Irwin # (Auto) 0.4 10^3/uL (0.2-0.9) 11/27/24 16:14 Eos # (Auto) 0.1 10^3/uL (0.0-0.8) 11/27/24 16:14 Baso # (Auto) 0.1 10^3/uL (0.0-0.1) 11/27/24 16:14 Nucleated RBC % (auto) 0 % 11/27/24 16:14 Nucleated RBCs # 0.0 /100WBC 11/27/24 16:14 Sodium 135 mmol/L (136-145) L 11/27/24 16:14 Potassium 4.2 mmol/L (3.5-5.1) 11/27/24 16:14 Chloride 99 mmol/L (98-107) 11/27/24 16:14 Carbon Dioxide 29 mmol/L (22-29) 11/27/24 16:14 Anion Gap 11.2 (5-19) 11/27/24 16:14 BUN 10 mg/dL (6-20) 11/27/24 16:14 Creatinine 1.0 mg/dL (0.5-0.9) H 11/27/24 16:14 GFR Calculation 60.2 mL/min (90-130) L 11/27/24 16:14 Glucose 92 mg/dL (65-115) 11/27/24 16:14 Calculated Osmolality 279 mOsm/kg (285-295) L 11/27/24 16:14 Calcium 9.3 mg/dL (8.5-10.5) 11/27/24 16:14 Total Bilirubin 0.3 mg/dL (0.15-1.2) 11/27/24 16:14 AST 16 U/L (0-32) 11/27/24 16:14 ALT 17 U/L (0-33) 11/27/24 16:14 Alkaline Phosphatase 109 U/L (35-105) H 11/27/24 16:14 Troponin T Baseline < 6 ng/L (0-10) 11/27/24 16:14 Troponin T 120 Minute < 6.0 ng/L (0-10) 11/27/24 18:12 Delta Troponin T 0 ABS# (0-10) 11/27/24 18:12 Total Protein 7.4 g/dL (6.6-8.7) 11/27/24 16:14 Albumin 4.1 g/dL (3.5-5.2) 11/27/24 16:14 Globulin 3.3 g/dL (1.3-4.6) 11/27/24 16:14 All radiology interpretation(s) finalized by discharge EKG Data EKG 1: Interpretation: Normal sinus rhythm, left axis, no ST segment elevation, QTc 422 Discharge Plan Discharge Patient Disposition: Home Clinical Impression: Non-cardiac chest pain Condition: Stable Prescriptions: New nitroglycerin 0.4 mg tablet, sublingual 0.4 mg sublingual Q5M PRN (Reason: chest pain) Qty: 30 0RF Rx Instructions: do not exceed 3 doses per episode No Action nystatin-triamcinolone 100,000-0.1 unit/g-% cream 1 applic topical TID Qty: 60 2RF fluticasone propionate [Flonase Allergy Relief] 50 mcg/actuation spray,suspension 2 spray intranasal DAILY PRN (Reason: allergies) Rx Instructions: administer into each nostril meclizine 25 mg tablet 25 mg PO TID PRN (Reason: dizziness or vertigo) Qty: 30 0RF Discharge Orders: Discharge ED (Routine); Ordered 11/27/24 Ordered By: Angela Hinojosa Referrals: Jonh Power MD [Physician, Cardiology] - 4-7 days Discharge Diet: Usual diet Patient Instructions: Noncardiac Chest Pain (ED), Patient Portal & [facility] Instructions Activity Restrictions/Additional Instructions: - With your possible history of cardiac murmur, I have referred you to Dr. Power to follow-up with. -I did not appreciate murmur on your examination. -Your initial cardiac workup is negative for acute coronary syndrome/heart attack. This does not mean you do not have blockage, it means that you do not have anything acute at this time. If you have chest pain again, you will need to return to the ED for further workup. As discussed, I am concerned this is coming from your blood pressure being so high, and I have placed an order for case management to evaluate you for assigning you to primary care physician. -Return to ED if you have worsening/chest pain return - Nitroglycerin utilize as needed has been sent to the pharmacy for chest pain. Print Language: Bulgarian Coding Level of Care Code ED Wet Char Conveyor Tender for Beau Michelle
[2024-11-27 18:45] LABS: Troponin 5 2HR < 6.0 ng/L (0-10); Troponin 5 2HR Delta 0 ABS# (0-10)
--- NOTE | 2024-11-27 19:07 | XRR_ITS ---
PROCEDURE INFORMATION: Exam: XR Chest Exam date and time: 11/27/2024 7:10 PM Age: 44 years old Clinical indication: Chest pressure; C/O chest pain TECHNIQUE: Imaging protocol: Radiologic exam of the chest. Views: 1 view. COMPARISON: CR (CHEST, ) 11/13/2024 8:05 PM FINDINGS: Lungs: Unremarkable. No consolidation. Pleural spaces: Unremarkable. No pleural effusion. No pneumothorax. Heart/Mediastinum: Unremarkable. No cardiomegaly. Bones/joints: Unremarkable. XR/XR chest 1V portable [id number] IMPRESSION: No acute findings.
[2024-11-27 19:22] VITALS: BP 175/99; PULSE 74; O2SAT 96
[2024-11-27 19:57] VITALS: BP 175/122; PULSE 72; O2SAT 96
--- NOTE | 2024-11-29 08:02 | DCPLANNER ---
messaged wpfm for er f/u
== END 2024-11-27 19:58 | disposition home or self-care (01) ==
PROVIDERS: Family Medicine; Emergency Provider Physician Assistant
DX: R07.89 Other chest pain (principal); E11.9 Type 2 diabetes mellitus without complications
CPT/HCPCS: 36415; 71045; 80053; 84484; 85025; 93005; 99285

== ENCOUNTER → 2024-12-09 11:51 | Outpatient (BNVA) | payer OTHER, SELFPAY | DX: E11.9 Type 2 diabetes mellitus without complications (principal) | CPT/HCPCS: 80061; 83036 ==

== ENCOUNTER 2025-01-06 11:47 | Outpatient (CLI) | payer OTHER, SELFPAY ==
--- NOTE | 2025-01-06 12:02 | ECG_ITS ---
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 Baseline heart rate was 128 beats per minute. Baseline blood pressure was 165/95 millimeters of mercury. Target heart rate was 176 beats per minute. Maximum heart rate achieved was 154, which was 87 % of the target heart rate. Maximum blood pressure was 202/109 millimeters of mercury. Total exercise time was 4 minutes 45 seconds. Maximum METs achieved was 7.5, maximum VO2 was 26.3. The reason for ending the test was maximum effort achieved. The patient complained of shortness of breath during the stress test, which then resolved at the end of the test. ELECTROCARDIOGRAM: BASELINE: Showed sinus rhythm, normal axis, no significant ST-T changes at the baseline noted. EXERCISE: At the peak exercise level, no significant ST-T changes suggestive of ischemia noted. RECOVERY: During the recovery period, heart rate dropped appropriately. No significant ST-T changes in the recovery suggestive of ischemia noted. CONCLUSION: 1. Exercise capacity fair 2. Heart rate response was appropriate. 3. Blood pressure response was appropriate. 4. Symptoms not suggestive of ischemia. 5. Electrocardiogram portion of the stress test was not suggestive of ischemia. 6. Nuclear scan will be documented separately. Electronically Signed On 01-19-2025 20:40:09 DUTY OFFICER by GALLO LEE [email or web address] [id number]
[2025-01-06 12:04] VITALS: BMI 48.7
[2025-01-06 12:41] VITALS: BP 199/85; PULSE 95
== END 2025-01-06 11:48 | disposition home or self-care (01) ==
LOC: CDL 11:49
PROVIDERS: Visit Provider Internal Medicine Cardiovascular Disease
DX: R07.9 Chest pain, unspecified (principal)
CPT/HCPCS: 93017

== ENCOUNTER 2025-01-26 07:51 | Outpatient (CLI) | payer OTHER, SELFPAY ==
--- NOTE | 2025-01-26 08:30 | USCV_ITS ---
Marley Zamarripa Age: 45 Gender: F : 1980 Exam Date: 01/26/2025 08:16 Ordering Phys: Jonh Power MD ([email or web address]) Technologist: Exam Location: [facility] [place] Indication: syncope BP: 120 / 70 HR: 70 Rhythm: Sinus Technical Quality: Adequate MEASUREMENTS (Male / Female) Normal Values 2D ECHO LV Diastolic Diameter PLAX 4.6 cm 4.2 - 5.9 / 3.9 - 5.3 cm IVS Systolic Thickness 1.6 cm LVPW Diastolic Thickness 1.0 cm 0.6 - 1.0 / 0.6 - 0.9 cm LVPW Systolic Thickness 1.6 cm LVOT Diameter 2.2 cm LV Ejection Fraction 2D Teich 66.9 % LV Ejection Fraction MOD 2C 51.5 % LV Ejection Fraction 2C AL 52.0 % LA Diameter 4.3 cm RA Systolic Volume 4C AL 42.5 ml RA Systolic Volume 4C MOD 42.0 ml LA Sys Volume AL 58.7 cm cubed LA Sys Volume Index AL 23.5 cm cubed/m squared Aorta at Sinotubular Diameter 3.0 cm IVC Diameter 2.0 cm M-MODE LA Ao Ratio MM 1.5 AV Cusp Separation MM 2.3 cm DOPPLER AV Peak Velocity 161.0 cm/s LVOT Peak Velocity 80.0 cm/s AV Area Cont Eq vti 2.2 cm squared AV Area Cont Eq pk 1.8 cm squared MV Peak Velocity 113.0 cm/s MV Area PHT 4.5 cm squared TV Peak Velocity 183.5 cm/s TR Peak Velocity 192.0 cm/s TR Peak Gradient 14.7 mmHg TV Peak E Velocity 108.0 cm/s PV Peak Velocity 146.0 cm/s FINDINGS Left Ventricle Normal left ventricular size, systolic function and ejection fraction 55%. Normal left ventricular diastolic function. Normal left ventricular wall thickness. Right Ventricle Normal right ventricular size and systolic function. Right Atrium Normal right atrial size. Left Atrium Normal left atrial size. IA Septum Normal appearance of the interatrial septum. Mitral Valve Normal mitral valve structure. No mitral valve stenosis or regurgitation. Aortic Valve Normal aortic valve structure. No aortic valve stenosis or regurgitation. Tricuspid Valve Normal tricuspid valve structure. No tricuspid valve stenosis or regurgitation. Normal pulmonary pressure. Pulmonic Valve Normal pulmonic valve structure. Trace pulmonary valve regurgitation. Pericardium No pericardial effusion. Aorta Normal diameter of the aortic root and ascending thoracic aorta. IVC Normal IVC diameter. CONCLUSIONS Normal left ventricular size, systolic function and wall thickness with ejection fraction of 55%. Normal left ventricular diastolic function. Normal right ventricular size and systolic function. No significant valvular abnormalities. Jonh Power MD, FACC (Electronically Signed) Final Date: 29 January 2025 13:59 S
== END 2025-01-26 07:52 | disposition home or self-care (01) ==
LOC: RAD 07:52
PROVIDERS: Visit Provider Internal Medicine Cardiovascular Disease
DX: R55 Syncope and collapse (principal)
CPT/HCPCS: 93306